=== PATIENT | male | born 1980 | race Two or more races ===

== ENCOUNTER → 2023-09-11 08:50 | Outpatient (REF) | payer BC, SELFPAY | LOC: HWRAD 08:50 | PROVIDERS: ATTENDING PHYSICIAN Internal Medicine Endocrinology, Diabetes & Metabolism; FAMILY PHYSICIAN Nurse Practitioner Family | DX: C73 Malignant neoplasm of thyroid gland (principal) | CPT/HCPCS: 76536 ==

== ENCOUNTER 2023-09-21 06:10 | Day surgery (SDC) | payer BC, SELFPAY ==
[2023-09-21] VITALS (13 sets, daily range): BP systolic 104–157; BP diastolic 75–128; BMI 25.5
[2023-09-21] MEDS: NORMOSOL-R 1000 IV (07:00)
[2023-09-21] MEDS: CELEBREX 200 MG PO (07:00)
[2023-09-21] MEDS: TYLENOL 1000 MG PO (07:00)
== END 2023-09-21 09:47 | disposition home or self-care (01) ==
LOC: SDS 06:10
PROVIDERS: ATTENDING PHYSICIAN Specialist
DX: S83.241A Other tear of medial meniscus, current injury, right knee, initial encounter (principal); X58.XXXA Exposure to other specified factors, initial encounter; M22.41 Chondromalacia patellae, right knee; M65.9 Synovitis and tenosynovitis, unspecified
CPT/HCPCS: 29881

== ENCOUNTER → 2024-02-25 08:56 | Outpatient (REF) | payer BC, SELFPAY | LOC: HWRAD 08:56 | PROVIDERS: ATTENDING PHYSICIAN Internal Medicine Endocrinology, Diabetes & Metabolism; FAMILY PHYSICIAN Nurse Practitioner Family | DX: C73 Malignant neoplasm of thyroid gland (principal) | CPT/HCPCS: 76536 ==

== ENCOUNTER → 2024-02-28 11:21 | Outpatient (REF) | payer BC, SELFPAY | LOC: HWRAD 11:21 | PROVIDERS: ATTENDING PHYSICIAN Nurse Practitioner Family | DX: R20.2 Paresthesia of skin (principal) | CPT/HCPCS: 72050 ==

== ENCOUNTER → 2024-02-29 09:44 | Outpatient (REF) | payer BC, SELFPAY | LOC: EMG 09:44 | PROVIDERS: ATTENDING PHYSICIAN Nurse Practitioner Family | DX: R20.2 Paresthesia of skin (principal) | CPT/HCPCS: 95886; 95911 ==

== ENCOUNTER → 2024-03-13 12:11 | Outpatient (REF) | payer BC, SELFPAY | LOC: HWRAD 12:11 | PROVIDERS: ATTENDING PHYSICIAN Surgery Plastic and Reconstructive Surgery; FAMILY PHYSICIAN Nurse Practitioner Family | DX: D16.4 Benign neoplasm of bones of skull and face (principal) | CPT/HCPCS: 70486 ==

== ENCOUNTER 2024-07-31 11:50 | Inpatient (IN) | payer BC, SELFPAY ==
[2024-07-29 18:55] VITALS: BP 144/102
[2024-07-29 19:27] LABS: COVID-19 Antigen Negative (Negative)
[2024-07-29 19:37] LABS: % Basophils 0.4 % (0-2); % Eosinophils 1.3 % (0-6); % Immature Granulocytes 0.2 % (0-0.5); % Lymphocytes 27.7 % (20.5-51.1); % Monocytes 11.9 % (1.7-9.3); % Neutrophils 58.5 % (42.2-75.2); Absolute Eosinophils 0.1 10^3/uL (0-0.7); Absolute Lymphocytes 1.3 10^3/uL (1.2-3.4); Absolute Monocytes 0.6 10^3/uL (0.1-0.6); Absolute Neutrophils 2.7 10^3/uL (1.4-6.5); Hemoglobin 15.2 g/dL (13.0-18.0); Mean Corp Hgb Conc. 33.8 g/dL (33.0-37.0); Mean Corpuscular Hgb 28.6 pg (27.0-31.0); Mean Corpuscular Volume 84.6 fL (80.0-94.0); Mean Platelet Volume 8.3 fL (7.4-10.4); Nucleated Red Blood Cells % 0 % (-); Platelet Count 247 10^3/uL (130-400); Red Blood Cell Count 5.32 10^6/uL (4.70-6.10); Red Cell Dist. Width 14.6 % (11.5-14.5); White Blood Cell Count 4.7 10^3/uL (4.8-10.8)
[2024-07-29 19:45] LABS: Albumin 4.4 g/dl (3.5-5.0); Alkaline Phosphatase 171 U/L (38-126); Blood Urea Nitrogen 10 mg/dl (9-20); Calcium 7.4 mg/dl (8.4-10.2); Carbon Dioxide 28 mmol/L (22-30); Chloride 99 mmol/L (98-107); Glucose 111 mg/dl (70-99); Potassium 4.4 mmol/L (3.5-5.1); Sodium 137 mmol/L (135-145); Total Bilirubin 5.9 mg/dl (0.2-1.3); eGFR > 60.00
[2024-07-29 20:08] LABS: ALT (SGPT) 3149 U/L (0-50)
[2024-07-29 20:38] LABS: AST (SGOT) 1779 U/L (17-59); Lipase 547 U/L (23-300)
--- NOTE | 2024-07-29 21:03 | ED.GENMED ---
History of Present Illness
<Ivan Santamaria PA-C - Last Filed: 08/04/24 08:09>
General
Chief Complaint: Abnormal Lab Value
Source: patient
Exam Limitations: none
Time Seen by Provider: 07/29/24 20:47
History of Present Illness
History of Present Illness:
44-year-old male with history of thyroid cancer requiring thyroidectomy now on Synthroid and calcitriol presents with 8 or 9 days worth of fatigue abdominal pain discolored stool and itchy skin. He was seen by the family doctor and outpatient labs
demonstrated elevated LFTs. He denies a cough. He denies sore throat or neck pain. He notes the pain in his abdomen is burning in nature mainly in the center occasionally radiates down to the lower abdomen bilaterally. The pain does not travel
to the back. No associated shortness of breath. His appetite is decreased. He notes recent travel to [place] about a month ago. This no other complaints at this time. He denies use of alcohol.
Phy Exam
<Ivan Santamaria PA-C - Last Filed: 08/04/24 08:09>
Physical Exam
Physical Exam:
General: Well-appearing male no acute respiratory distress
HEENT: Normocephalic atraumatic sclera icteric neck is supple posterior pharynx without erythema or exudate no adenopathy
Heart: Regular rate and rhythm
Lungs: Clear no wheeze
Abdomen soft tender to the epigastric and right upper quadrants as well as the lower quadrant bilaterally. Mild guarding positive Duncan sign
Extremities: No cyanosis
Skin warm no rash.
Course
<Ivan Santamaria PA-C - Last Filed: 08/04/24 08:09>
Orders/Labs/Results
Orders:
Orders
07/29/24 19:04
Acetaminophen Urgent
Comment: ADD ON
COVID-19 Antigen Urgent
Source: Nasal Swab
Complete Blood Count/With Diff Urgent
Comprehensive Metabolic Panel Urgent
Lipase Urgent
Comment: ADD ON
Monotest Urgent
Comment: ADD ON
Influenza A+B Rapid Molecular Urgent
KATHIE Source: Nasal Swab
Specimen Description:
07/29/24 20:10
Add On- LAB Urgent
Tests Added?: lipase
07/29/24 21:00
Add On- LAB Urgent
Tests Added?: monotest
07/29/24 21:01
Iohexol [Omnipaque] See Protocol PO NOW STA
US Abdomen Complete/Upper Urgent
Comment:
Reason For Exam: ruq pain, elevated LFT
07/29/24 21:02
CT Abd/pel W Iv And Oral Contr Urgent
Comment:
Reason For Exam: abodminal pain
07/29/24 21:15
PTT Urgent
Prothrombin Time Urgent
07/29/24 22:22
Hepatitis A Antibody, Total Urgent
Hepatitis A IgM Antibody Urgent
Hepatitis B Core Ab, IgM Urgent
Hepatitis B Core Ab, Total Urgent
Hepatitis B Surface Antibody Urgent
Hepatitis B Surface Antigen Urgent
Hepatitis C Antibody Urgent
07/30/24 01:20
0.9% Sodium Chloride 1000 ml [Nss] 1,000 ml IV BOLUS
07/30/24 01:21
Calcium Gluconate 1,000 mg IV NOW STA
07/30/24 02:16
Admit/Transfer Patient As Directed
Co-Sign Provider:
Level of Care: Observation services
Assign to:: Medical/Surgical
Physician / Group: [facility]
Diagnosis: Acute Hepatitis
07/30/24 02:17
PRN Pain Medication Management As Directed
May give lesser potent ordered pain med per pt: Yes
preference::
Protocol:: Medication orders for pain may be administered in a
manner that supports deferring to patient preference
when the pt is:
- Requesting an ordered lesser potent pain medication.
Least to most potent pain medications are defined
as: acetaminophen < NSAID < tramadol < opioids
(morphine, oxycodone, hydromorphone).
- Requesting a lesser dose of the same medication IF
ORDERED.
- Requesting a less intrusive route of administration
if both routes are prescribed by the provider (PO <
IV).
07/30/24 02:18
Code Status As Directed
Resuscitation Status: Full Code
07/30/24 03:20
Add On- LAB Urgent
Tests Added?: acetaminophen
07/30/24 03:21
0.9% Sodium Chloride 1000 ml [Nss] 1,000 ml IV 125 mls/hr
Ketorolac [Toradol] 15 mg IV Q6HPRN PRN
Ondansetron Injectable [Zofran] 4 mg IV Q6HPRN PRN
07/30/24 03:21
Consult Notification Routine
Specialty to Notify: Gastroenterology
Date consulting provider notified: 07/30/24
Time consulting provider notified: 08:23
Notified:: Provider
GASTROINTESTINAL CONSULT Routine
Consulting Provider: Apurva Costello
Was physician already notified: No
Reason for consult: Acute hepatitis
Activity As Directed
Activity Level: Ambulate
With Assistance
I/O [Intake/ Output] As Directed
Frequency: Per unit guidelines
Pneumatic Compression Sleeves As Directed
Type: Knee high
Vital Signs As Directed
Frequency: Per unit guidelines
Oxygen Therapy [O2 Therapy] [RESP] Routine
Titrate/Wean O2 to maintain O2 sat greater than (%): 94
DX Deep Vein Thrombosis Video Routine
07/30/24 05:00
Flush (0.9% Sodium Chloride) [Flush (Nss)] See Dose Instructions IV PER PROTOCOL
07/30/24 06:00
Levothyroxine [Synthroid] 137 mcg PO DAILY@0600
07/30/24 08:00
0.9% Sodium Chloride [Nss (Preservative Free)] 10 ml IV DAILY
Calcitriol [Rocaltrol] 0.5 mcg PO DAILY
Calcium 300mg(Ca. Carb. 750mg) [Tums Ex (Extra Strength) Chewable Tablet] 600 mg PO DAILY
Pantoprazole [Protonix IV] 40 mg IV DAILY
07/30/24 08:11
C-Reactive Protein Routine
Comment: ADD ON
CMV IgG Antibody [S] Routine
CMV IgM Antibody [S] Routine
Comment: ADD ON
Complete Blood Count/No Diff IN AM
Comprehensive Metabolic Panel Routine
Direct Bilirubin Routine
Vernon-Hatch Virus Ab Panel I [S] Routine
Comment: ADD ON
Erythrocyte Sed Rate Routine
Comment: ADD ON
Ferritin Routine
Comment: ADD ON
Iron Routine
Comment: ADD ON
Lipase Routine
Comment: ADD ON
TSH Reflex To Free T4 Routine
Total Iron Binding Routine
Comment: ADD ON
Legionella Urinary Antigen Urgent
KATHIE Source: Urine
Specimen Description:
07/30/24 09:12
MRI Abdomen [MR Abdomen W/o & W Contrast] Routine
Comment:
Reason For Exam: increased LFT's and lipase, do with MRCP
Recent pill cam endoscopy?: No
07/30/24 09:32
Add On- LAB Routine
Tests Added?: CMV IGG, IGM, vernon hatch panel
07/30/24 09:49
Add On- LAB Routine
Tests Added?: iron, TIBC, iron sat, ferritin
07/30/24 Lunch
Low Fat
At Your Request: Full Participation
Does patient need a safe tray?: No
07/30/24 11:31
Add On- LAB Routine
Tests Added?: lipase
07/30/24 12:02
Influenza A+B Rapid Molecular Urgent
KATHIE Source: Nasal Swab
Specimen Description:
07/30/24 14:06
Add On- LAB Routine
Tests Added?: sed rate , CRP
07/30/24 16:28
INFECTIOUS DISEASE CONSULT Routine
Consulting Provider: Tiffany Parsons
Was physician already notified: Yes
07/30/24 16:54
Add On- LAB Routine
Tests Added?: hepatitis E
07/30/24 17:59
Blood Culture Q30M
KATHIE Source: Blood/Venous
Specimen Description:
07/30/24 18:00
Enoxaparin Sodium [Lovenox] 40 mg SC QPM
07/30/24 20:19
CPK [Creatine Phosphokinase] Urgent
Salicylate Urgent
Blood Culture Q30M
KATHIE Source: Blood/Venous
Specimen Description:
07/31/24 06:37
AMA [Mitochondrial M2 Ab, IgG] [S] IN AM
SHANNAN, IgG Reflex to HEp-2 [S] IN AM
Ceruloplasmin [S] IN AM
Complete Blood Count/No Diff IN AM
Comprehensive Metabolic Panel Routine
Direct Bilirubin Routine
Prothrombin Time IN AM
Smooth Muscle Antibody, IgG [S] IN AM
Vitamin D, 25-Oh Routine
07/31/24 08:41
Babesia Smear [Blood Parasites] Routine
KATHIE Source: Blood/Venous
Specimen Description:
Comment: malaria and babesia smear
Abnormal Lab Results
07/29/24 07/30/24 07/30/24
19:04 08:11 20:19
WBC 4.7 L 10^3/uL
(4.8-10.8)
RDW 14.6 H % 14.6 H %
(11.5-14.5) (11.5-14.5)
Monocytes % 11.9 H %
(1.7-9.3)
BUN 8 L mg/dl
(9-20)
Glucose 111 H mg/dl
(70-99)
Calcium 7.4 L mg/dl 7.3 L mg/dl
(8.4-10.2) (8.4-10.2)
Ferritin 1950.0 H ng/ml
(17.9-464.0)
Total Bilirubin 5.9 H mg/dl 7.0 H mg/dl
(0.2-1.3) (0.2-1.3)
Direct Bilirubin 5.4 H mg/dl
(0.0-0.4)
AST 1779 H* U/L 1994 H* U/L
(17-59) (17-59)
ALT 3149 H* U/L 3137 H* U/L
(0-50) (0-50)
Alkaline Phosphatase 171 H U/L 183 H U/L
(38-126) (38-126)
Albumin
Lipase 547 H U/L 405 H U/L
(23-300) (23-300)
Vitamin D 25-Hydroxy
Salicylates < 1.0 L mg/dl
(2.0-20.0)
Acetaminophen < 10 L ug/ml
(10-30)
EBV Capsid Ag IgG Ab 88.1 H U/mL
(0.0-21.9)
EBV Nuclear Ag Ab Titer 277.0 H U/mL
(0.0-21.9)
07/31/24
06:37
WBC 4.3 L 10^3/uL
(4.8-10.8)
RDW 14.9 H %
(11.5-14.5)
Monocytes %
BUN 7 L mg/dl
(9-20)
Glucose 113 H mg/dl
(70-99)
Calcium 6.5 L* mg/dl
(8.4-10.2)
Ferritin
Total Bilirubin 6.8 H mg/dl
(0.2-1.3)
Direct Bilirubin 5.7 H mg/dl
(0.0-0.4)
AST 1872 H* U/L
(17-59)
ALT 3056 H* U/L
(0-50)
Alkaline Phosphatase 169 H U/L
(38-126)
Albumin 3.4 L g/dl
(3.5-5.0)
Lipase
Vitamin D 25-Hydroxy 23.5 L ng/mL
(30-80)
Salicylates
Acetaminophen
EBV Capsid Ag IgG Ab
EBV Nuclear Ag Ab Titer
07/31/24 06:37
07/31/24 06:37
Vital Signs
Initial and Last Documented VS:
Initial Vital Signs
Temp Pulse Resp BP Pulse Ox
98.5 F 79 16 144/102 99
07/29/24 18:55 07/29/24 18:55 07/29/24 18:55 07/29/24 18:55 07/29/24 18:55
Last Documented Vital Signs
Temp Pulse Resp BP Pulse Ox
97.5 F 74 16 140/86 99
08/01/24 12:40 08/01/24 12:40 08/01/24 12:40 08/01/24 12:40 08/01/24 12:40
<Noah Beebe, DO - Last Filed: 07/30/24 01:27>
Orders/Labs/Results
Orders:
Orders
07/29/24 19:04
Acetaminophen Urgent
Comment: ADD ON
COVID-19 Antigen Urgent
Source: Nasal Swab
Complete Blood Count/With Diff Urgent
Comprehensive Metabolic Panel Urgent
Lipase Urgent
Comment: ADD ON
Monotest Urgent
Comment: ADD ON
Influenza A+B Rapid Molecular Urgent
KATHIE Source: Nasal Swab
Specimen Description:
07/29/24 20:10
Add On- LAB Urgent
Tests Added?: lipase
07/29/24 21:00
Add On- LAB Urgent
Tests Added?: monotest
07/29/24 21:01
Iohexol [Omnipaque] See Protocol PO NOW STA
US Abdomen Complete/Upper Urgent
Comment:
Reason For Exam: ruq pain, elevated LFT
07/29/24 21:02
CT Abd/pel W Iv And Oral Contr Urgent
Comment:
Reason For Exam: abodminal pain
07/29/24 21:15
PTT Urgent
Prothrombin Time Urgent
07/29/24 22:22
Hepatitis A Antibody, Total Urgent
Hepatitis A IgM Antibody Urgent
Hepatitis B Core Ab, IgM Urgent
Hepatitis B Core Ab, Total Urgent
Hepatitis B Surface Antibody Urgent
Hepatitis B Surface Antigen Urgent
Hepatitis C Antibody Urgent
07/30/24 01:20
0.9% Sodium Chloride 1000 ml [Nss] 1,000 ml IV BOLUS
07/30/24 01:21
Calcium Gluconate 1,000 mg IV NOW STA
07/30/24 02:16
Admit/Transfer Patient As Directed
Co-Sign Provider:
Level of Care: Observation services
Assign to:: Medical/Surgical
Physician / Group: [facility]
Diagnosis: Acute Hepatitis
07/30/24 02:17
PRN Pain Medication Management As Directed
May give lesser potent ordered pain med per pt: Yes
preference::
Protocol:: Medication orders for pain may be administered in a
manner that supports deferring to patient preference
when the pt is:
- Requesting an ordered lesser potent pain medication.
Least to most potent pain medications are defined
as: acetaminophen < NSAID < tramadol < opioids
(morphine, oxycodone, hydromorphone).
- Requesting a lesser dose of the same medication IF
ORDERED.
- Requesting a less intrusive route of administration
if both routes are prescribed by the provider (PO <
IV).
07/30/24 02:18
Code Status As Directed
Resuscitation Status: Full Code
07/30/24 03:20
Add On- LAB Urgent
Tests Added?: acetaminophen
07/30/24 03:21
0.9% Sodium Chloride 1000 ml [Nss] 1,000 ml IV 125 mls/hr
Ketorolac [Toradol] 15 mg IV Q6HPRN PRN
Ondansetron Injectable [Zofran] 4 mg IV Q6HPRN PRN
07/30/24 03:21
Consult Notification Routine
Specialty to Notify: Gastroenterology
Date consulting provider notified: 07/30/24
Time consulting provider notified: 08:23
Notified:: Provider
GASTROINTESTINAL CONSULT Routine
Consulting Provider: Apurva Costello
Was physician already notified: No
Reason for consult: Acute hepatitis
Activity As Directed
Activity Level: Ambulate
With Assistance
I/O [Intake/ Output] As Directed
Frequency: Per unit guidelines
Pneumatic Compression Sleeves As Directed
Type: Knee high
Vital Signs As Directed
Frequency: Per unit guidelines
Oxygen Therapy [O2 Therapy] [RESP] Routine
Titrate/Wean O2 to maintain O2 sat greater than (%): 94
DX Deep Vein Thrombosis Video Routine
07/30/24 05:00
Flush (0.9% Sodium Chloride) [Flush (Nss)] See Dose Instructions IV PER PROTOCOL
07/30/24 06:00
Levothyroxine [Synthroid] 137 mcg PO DAILY@0600
07/30/24 08:00
0.9% Sodium Chloride [Nss (Preservative Free)] 10 ml IV DAILY
Calcitriol [Rocaltrol] 0.5 mcg PO DAILY
Calcium 300mg(Ca. Carb. 750mg) [Tums Ex (Extra Strength) Chewable Tablet] 600 mg PO DAILY
Pantoprazole [Protonix IV] 40 mg IV DAILY
07/30/24 08:11
C-Reactive Protein Routine
Comment: ADD ON
CMV IgG Antibody [S] Routine
CMV IgM Antibody [S] Routine
Comment: ADD ON
Complete Blood Count/No Diff IN AM
Comprehensive Metabolic Panel Routine
Direct Bilirubin Routine
Vernon-Hatch Virus Ab Panel I [S] Routine
Comment: ADD ON
Erythrocyte Sed Rate Routine
Comment: ADD ON
Ferritin Routine
Comment: ADD ON
Iron Routine
Comment: ADD ON
Lipase Routine
Comment: ADD ON
TSH Reflex To Free T4 Routine
Total Iron Binding Routine
Comment: ADD ON
Legionella Urinary Antigen Urgent
KATHIE Source: Urine
Specimen Description:
07/30/24 09:12
MRI Abdomen [MR Abdomen W/o & W Contrast] Routine
Comment:
Reason For Exam: increased LFT's and lipase, do with MRCP
Recent pill cam endoscopy?: No
07/30/24 09:32
Add On- LAB Routine
Tests Added?: CMV IGG, IGM, vernon hatch panel
07/30/24 09:49
Add On- LAB Routine
Tests Added?: iron, TIBC, iron sat, ferritin
07/30/24 Lunch
Low Fat
At Your Request: Full Participation
Does patient need a safe tray?: No
07/30/24 11:31
Add On- LAB Routine
Tests Added?: lipase
07/30/24 12:02
Influenza A+B Rapid Molecular Urgent
KATHIE Source: Nasal Swab
Specimen Description:
07/30/24 14:06
Add On- LAB Routine
Tests Added?: sed rate , CRP
07/30/24 16:28
INFECTIOUS DISEASE CONSULT Routine
Consulting Provider: Tiffany Parsons
Was physician already notified: Yes
07/30/24 16:54
Add On- LAB Routine
Tests Added?: hepatitis E
07/30/24 17:59
Blood Culture Q30M
KATHIE Source: Blood/Venous
Specimen Description:
07/30/24 18:00
Enoxaparin Sodium [Lovenox] 40 mg SC QPM
07/30/24 20:19
CPK [Creatine Phosphokinase] Urgent
Salicylate Urgent
Blood Culture Q30M
KATHIE Source: Blood/Venous
Specimen Description:
07/31/24 06:37
AMA [Mitochondrial M2 Ab, IgG] [S] IN AM
SHANNAN, IgG Reflex to HEp-2 [S] IN AM
Ceruloplasmin [S] IN AM
Complete Blood Count/No Diff IN AM
Comprehensive Metabolic Panel Routine
Direct Bilirubin Routine
Prothrombin Time IN AM
Smooth Muscle Antibody, IgG [S] IN AM
Vitamin D, 25-Oh Routine
07/31/24 08:41
Babesia Smear [Blood Parasites] Routine
KATHIE Source: Blood/Venous
Specimen Description:
Comment: malaria and babesia smear
Abnormal Lab Results
07/29/24 07/30/24 07/30/24
19:04 08:11 20:19
WBC 4.7 L 10^3/uL
(4.8-10.8)
RDW 14.6 H % 14.6 H %
(11.5-14.5) (11.5-14.5)
Monocytes % 11.9 H %
(1.7-9.3)
BUN 8 L mg/dl
(9-20)
Glucose 111 H mg/dl
(70-99)
Calcium 7.4 L mg/dl 7.3 L mg/dl
(8.4-10.2) (8.4-10.2)
Ferritin 1950.0 H ng/ml
(17.9-464.0)
Total Bilirubin 5.9 H mg/dl 7.0 H mg/dl
(0.2-1.3) (0.2-1.3)
Direct Bilirubin 5.4 H mg/dl
(0.0-0.4)
AST 1779 H* U/L 1994 H* U/L
(17-59) (17-59)
ALT 3149 H* U/L 3137 H* U/L
(0-50) (0-50)
Alkaline Phosphatase 171 H U/L 183 H U/L
(38-126) (38-126)
Albumin
Lipase 547 H U/L 405 H U/L
(23-300) (23-300)
Vitamin D 25-Hydroxy
Salicylates < 1.0 L mg/dl
(2.0-20.0)
Acetaminophen < 10 L ug/ml
(10-30)
EBV Capsid Ag IgG Ab 88.1 H U/mL
(0.0-21.9)
EBV Nuclear Ag Ab Titer 277.0 H U/mL
(0.0-21.9)
07/31/24
06:37
WBC 4.3 L 10^3/uL
(4.8-10.8)
RDW 14.9 H %
(11.5-14.5)
Monocytes %
BUN 7 L mg/dl
(9-20)
Glucose 113 H mg/dl
(70-99)
Calcium 6.5 L* mg/dl
(8.4-10.2)
Ferritin
Total Bilirubin 6.8 H mg/dl
(0.2-1.3)
Direct Bilirubin 5.7 H mg/dl
(0.0-0.4)
AST 1872 H* U/L
(17-59)
ALT 3056 H* U/L
(0-50)
Alkaline Phosphatase 169 H U/L
(38-126)
Albumin 3.4 L g/dl
(3.5-5.0)
Lipase
Vitamin D 25-Hydroxy 23.5 L ng/mL
(30-80)
Salicylates
Acetaminophen
EBV Capsid Ag IgG Ab
EBV Nuclear Ag Ab Titer
07/31/24 06:37
07/31/24 06:37
Vital Signs
Initial and Last Documented VS:
Initial Vital Signs
Temp Pulse Resp BP Pulse Ox
98.5 F 79 16 144/102 99
07/29/24 18:55 07/29/24 18:55 07/29/24 18:55 07/29/24 18:55 07/29/24 18:55
Last Documented Vital Signs
Temp Pulse Resp BP Pulse Ox
97.5 F 74 16 140/86 99
08/01/24 12:40 08/01/24 12:40 08/01/24 12:40 08/01/24 12:40 08/01/24 12:40
<Ivan Santamaria PA-C - Last Filed: 08/04/24 08:09>
MDM/Problems Addressed
Differential Diagnosis Includes:
Abdominal pain with elevated liver functions. Consider hepatitis versus gallstone versus common bile duct stone versus viral illness
Patient quite tender on exam. Ultrasound and CT ordered. Labs reviewed demonstrate significantly elevated LFTs
Coags pending
<Ivan Santamaria PA-C - Last Filed: 08/04/24 08:09>
*Critical Care Note
Total Time (30-74mins, 75-104mins- exclusive of procedures): Not Applicable
<Noah Beebe DO - Last Filed: 07/30/24 01:27>
Patient Management
Discussion with other providers: Hospitalist
ED Attending Note
<Ivan Santamaria PA-C - Last Filed: 08/04/24 08:09>
-
Portions of this chart may have been created with voice recognition software.� Occasional wrong word or��sound alike� substitutions may have occurred due to the inherent limitations of voice recognition software.
<DO Klaus Blair Last Filed: 07/30/24 01:27>
ED Attending Note
Patient seen and examined by attending physician: Yes
I performed the substantive portion of visit, reviewed & personally made and approve the management plan that is documented in note by myself or SCOTTIE.: Yes
ED Attending Note:
This a 44-year-old male with history of papillary thyroid cancer with thyroidectomy, hypertension, hyperlipidemia who presents with recent fevers and found to have elevated liver enzymes. The patient my evaluation reports some fatigue and weakness
and then for the last several days had fevers. He has been using Tylenol 3 times a day but denies overuse. Patient admits he was also in [place] through June and at that time also had fevers. He thought he just had a local virus. Patient denies
diarrhea. Does report discomfort in his upper abdomen and towards his left side. Also reports that he feels twitchy right now wonders if this calcium is low. Exam: Awake and alert, no respiratory distress, abdomen soft. Agree with PA exam.
Assessment and plan: Question etiology. Question viral related and hepatitis panel pending. Also check Legionella antigen. Imaging does not reveal any obstructive process. Replace calcium, IV fluids and admit. GI consultation likely could be
beneficial
Discharge Plan
Departure
Patient Disposition: Admit
Date of Disposition: 07/30/24
Time of Disposition: 01:22
Admit to: Med/Surg
Presentation/result/management discussed w/ accepting MD/DO: Hospitalist
Discharge Problem:
Acute hepatitis, Hypocalcemia
Interventions
Interventions:
*Risk Screen - Suicide Last Done: 07/29/24 21:32
*General Assessment Last Done: 07/29/24 18:55
*Neglect/Abuse Screening Last Done: 07/29/24 21:32
ED- Fall Risk Assessment Last Done: 07/30/24 19:05
*ED COVID-19 Vaccine History Last Done: 07/29/24 18:55
*Nursing Disposition Last Done: 07/30/24 19:05
Discharge Date and Time
Discharge Date/Time: 07/30/24 19:06
[2024-07-29 21:12] LABS: Monotest Negative (Negative)
[2024-07-29] MEDS: OMNIPAQUE 50 ML PO (21:20)
[2024-07-29 21:30] VITALS: BP 141/100
[2024-07-29 21:30] LABS: INR 1.02; PT 13.7 Sec (11.4-14.6)
[2024-07-29 21:31] LABS: APTT 31.6 Sec (23.4-35.0)
[2024-07-29 23:30] VITALS: BP 146/100
[2024-07-30] VITALS (8 sets, daily range): BP systolic 103–148; BP diastolic 64–103; BMI 25.5; BMI 24.5
[2024-07-30] MEDS: CALCIUM GLUCONATE 1000 MG IV (01:26)
[2024-07-30] MEDS: NSS 1000 IV ×4 (01:26→21:37)
--- NOTE | 2024-07-30 02:35 | HPS.HSE ---
Family Physician
-
Family Physician: CINDY Leblacn
Chief Complaint
-
Fevers / Chills
History of Present Illness
Patient is a 44y M with PMH significant for thyroid cancer s/p thyroidectomy and XRT who presents to ED complaining of fevers, chills, myalgias and malaise. Patient states that his symptoms started about 8-9 days ago. He reports shaking chills,
fevers, muscle aches and fatigue. He has had poor appetite / decreased PO intake. No N/V. No diarrhea. Stool has been pale colored and urine has been bright yellow. Patient notes that he has been taking Tylenol for symptom control - two tabs 3
times daily at the most. Patient was seen by his PCP recently and had outpatient labs done. He was called today and advised of abnormal LFTs and told to present to the ED for evaluation.
Patient denies any history of liver disease. He denies any known sick contacts.
Patient traveled to [facility] in June of this year. He returned home on 06/21/24.
While in [place] he developed similar fevers / chills and myalgias. He states that multiple contacts were ill with similar symptoms at that time.
Patient denies any high-risk sexual activity / encounters.
He was seen by a physician in [facility] and received an injection of paracetamol with improvement in his symptoms. He then felt well until 8-9 days ago when his current symptoms developed.
Medical History
Past Medical History
Past Medical History: Reports Other
Additional Past Medical History:
Thyroid Cancer s/p Surgery and XRT
Hypothyroidism
Hypoparathyroidism
Past Surgical History: Reports Other
Additional Past Surgical History:
Thyroidectomy
R ACL Repair
Social History
Tobacco: Non-smoker
Alcohol: Occasional
Drug: None
Family History
Family History: Other (Strong history of premature CAD on his mother's side. Mother at 58yo. Maternal Uncles in 30s /40s. Father: DM)
Allergies / Home Medications
Allergies reflects when Allergies were last updated in [facility].
Home Medications with original date entered in [facility]
Allergy/Medication List:
Allergies
Allergy/AdvReac Type Severity Reaction Status Date / Time
No Known Allergies Allergy Verified 09/21/23 06:53
Home Medications
atorvastatin 10 mg tablet 10 mg PO HS 01/30/23
calcitriol 1 cap PO DAILY 09/14/23
calcium carbonate (Calcium 600) 600 mg PO DAILY 09/14/23
levothyroxine 137 mcg tablet (Synthroid) 137 mcg PO DAILY 09/14/23
Review of Systems
-
History Source: Patient
A 12 point ROS was completed and negative except as noted: Yes
Constitutional: Reports Fever, Fatigue and Chills
EENT: Denies Sore Throat
Respiratory: Denies Cough or Trouble Breathing
Cardiac: Denies Chest Pain or Palpitations
Abdomen/GI: Reports Abdominal Pain, Nausea, Anorexia and Other (Pale stools.); Denies Vomiting, Diarrhea, Bloody Stools or Black Stools
: Reports Other (Bright yellow urine.); Denies Dysuria or Frequency
Musculoskeletal: Reports Muscle Pain; Denies Edema
Neurological: Reports Headache; Denies Dizzy
Psych: Denies Depression or Anxiety
Physical Exam
Vital Signs
Vital Signs
Temp Pulse Resp BP Pulse Ox
98.5 F 65 16 136/101 99
07/29/24 18:55 07/30/24 01:23 07/30/24 01:23 07/30/24 01:23 07/30/24 01:23
Physical Exam
General: Other (44y M in no acute distress.)
HEENT: Other (Dry MM. Neck supple. No noted scleral icterus, etc.)
Respiratory: Clear; No Wheezes, Rales or Rhonchi
Cardiac: S1/S2 and Regular Rhythm; No Murmur
GI: Other (Soft, diffusely tender without rebound / guarding. pos BS.)
Musculoskeletal: No Clubbing, No Cyanosis and No Edema
Neuro: AO x 3
Laboratory Results
-
07/29/24 19:04
07/29/24 19:04
Laboratory Results
PT 13.7 Sec (11.4-14.6) 07/29/24 21:15
INR 1.02 07/29/24 21:15
APTT 31.6 Sec (23.4-35.0) 07/29/24 21:15
Total Bilirubin 5.9 mg/dl (0.2-1.3) H 07/29/24 19:04
AST 1779 U/L (17-59) H* 07/29/24 19:04
ALT 3149 U/L (0-50) H* 07/29/24 19:
Alkaline Phosphatase 171 U/L (38-126) H 07/29/24 19:04
Lipase 547 U/L (23-300) H 07/29/24 19:04
Impression/Plan
-
A/P: Patient is a 44y M with PMH significant for thyroid cancer s/p thyroidectomy who presents to ED complaining of fevers / chills and abnormal LFTs.
Acute Hepatitis
- Observe overnight for further evaluation and treatment.
- Likely viral hepatitis - serologies pending.
- Supportive care with IVFs, antipyretics (NSAIDs), etc.
- GI evaluation for additional recommendations.
- Imaging (CT and US) done in the ED this evening are unremarkable.
- Hold statin. Avoid Tylenol for now.
- Check acetaminophen level - though doubt recent TID usage would explain current symptoms / numbers.
Hypocalcemia
Chronic Hypoparathyroidism
- Patient with hypoparathyroidism and issues with hypocalcemia following thyroid surgery.
- Continue calcitriol.
- Calcium supplemented in the ED.
- Follow labs for changes and provide additional Ca as needed.
History of Thyroid Cancer
Hypothyroidism
- Post-surgical hypothyroidism
- Continue current T4 replacement.
DVT Prophylaxis: Lovenox
Code Status: Full
[2024-07-30] MEDS: SYNTHROID 137 MCG PO (05:27)
[2024-07-30 05:33] LABS: Acetaminophen < 10 ug/ml (10-30)
--- NOTE | 2024-07-30 08:00 | W.PN.HOSP.TC ---
Today's Communication/Plan
-
Avoid Tylenol
Hold statin
Check hepatitis panel, CMV, EBV
Assessment / Plan
Assessment / Plan
44-year-old male with PMH of papillary thyroid cancer s/p thyroidectomy and chemotherapy who presented to ED on 07/30/2024 with 8 to 9 days history of fever, chills, myalgia and malaise. He also reports poor oral intake with decreased appetite.
Denies nausea vomiting or diarrhea. He recently saw his PCP and was sent to the hospital because of elevated LFTs. Denies history of liver disease, or alcohol use disorder, high risk sexual contacts. He had a recent travel history to [place] in
June 2024 when he developed similar fever, chills and myalgia. At that time, he received paracetamol injection and felt well until recent symptoms started about 9 days ago.
Assessment/plan:
#Acute hepatitis
-Suspect viral etiology vs passed CBD stone. Autoimmune hepatitis less likely given no history of other autoimmune diseases or evidence of extrahepatic disease.
-MRI of abdomen suggesting mild gallbladder inflammation suggesting acalculous cholecystitis.
-AST 1779, ALT 3149., T. bili 5.9 p1721, lipase 547.
-Mononucleosis screen negative.
-Hepatitis panel, EBV and CMV pending.
-CT and ultrasound done in the ED unremarkable.
-Blood acetaminophen level low.
-GI following.
-Hold statin and Tylenol.
-Follow BMP
#History of papillary thyroid cancer
-S/p thyroidectomy with neck dissection 2022 with iatrogenic hypothyroidism.
-Continue Synthroid.
#Chronic hypoparathyroidism
-S/p thyroidectomy with resultant hypocalcemia, calcium 7.3.
-On calcitriol [employer], continue.
-Calcium supplementation as needed.
-Check TSH with reflex to T4.
-Continue levothyroxine.
-Follow BMP.
#Hyperlipidemia
-Hold statin with acute liver failure.
DVT PPx: Lovenox
CODE STATUS full code
Data
MRI 07/30/2024:
Subtle findings as described, suggesting mild gallbladder inflammation. In the absence of cholelithiasis on recent ultrasound examination, consider the possibility of acalculous cholecystitis. No bile duct dilatation. No definitive evidence to
suggest pancreatitis.
CT abdomen/pelvis 07/29/2024:
1. No CT abnormalities identified to explain the patient's symptoms.
2. No evidence of intestinal obstruction, bowel inflammatory process, nephrolithiasis, hydronephrosis, cholecystitis, or abscess formation.
Abdominal ultrasound 07/29/2024:
No sonographic evidence for cholelithiasis or bile duct dilatation. Limited by bowel gas artifact.
Anticipated Discharge: 24 - 48 hours
Subjective/Interval History
-
Date of Service: July 30, 2024
Saw and evaluated patient today. Reports that his pain improved. He endorses midepigastric abdominal pain rated 2/10 that radiates sometimes to the back, intermittently. Denies nausea or vomiting. Denies chest pain or shortness of breath. No
fever or chills. Denies headaches or urinary symptoms. He also endorses generalized itchiness that has improved, dark urine and pale stool for the past 4 to 5 days. He denies any rashes, or joint pains.
Objective Data
-
Labs:
Laboratory Results
07/29/24 07/29/24 07/30/24
19:04 21:15 07:29
WBC
Hgb
Hct
Plt Count
PT 13.7
INR 1.02
APTT 31.6
Sodium Pending
Potassium Pending
Chloride Pending
Carbon Dioxide Pending
BUN Pending
Creatinine Pending
Glucose Pending
Calcium Pending
Total Bilirubin Pending
AST 1779 H* Pending
ALT 3149 H* Pending
Alkaline Phosphatase Pending
07/30/24
07:30
WBC Pending
Hgb Pending
Hct Pending
Plt Count Pending
PT
INR
APTT
Sodium
Potassium
Chloride
Carbon Dioxide
BUN
Creatinine
Glucose
Calcium
Total Bilirubin
AST
ALT
Alkaline Phosphatase
Vital Signs:
Vital Signs
Temp Pulse Resp BP Pulse Ox
98.5 F 65 16 136/101 99
07/29/24 18:55 07/30/24 01:23 07/30/24 01:23 07/30/24 01:23 07/30/24 01:23
Review of Systems
-
History Source: Patient
All other systems: Not reviewed unless documented
Constitutional: Reports No Symptoms; Denies Fever, Fatigue, Night Sweats or Chills
Respiratory: Reports No Symptoms; Denies Trouble Breathing or Wheezing
Cardiac: Reports No Symptoms; Denies Chest Pain or Palpitations
Abdomen/GI: Reports Abdominal Pain; Denies Nausea or Vomiting
Genitourinary: Reports No Symptoms
Musculoskeletal: Reports No Symptoms; Denies Joint Pain
Skin: Reports Itching (Improved); Denies Rash
Neuro: Reports No Symptoms
Physical Exam
-
General: Well Developed and No Apparent Distress
HEENT: Normocephalic, Atraumatic, Moist Mucous Membranes and Other (Mild scleral icterus)
Respiratory: Clear to Auscultation; Negative Wheezes
Cardiac: Regular Rhythm and S1/S2; Negative Murmur, Rub or Gallop
GI: Soft, Nontender, Nondistended and Normal Bowel Sounds; Negative Organomegaly
Rectal: Deferred by Provider
Musculoskeletal: No Clubbing, No Cyanosis and No Edema
Skin: Warm; Negative Rash
Neuro: Awake, AO x 3 and Nonfocal/Grossly Intact
Psych: Calm
Data Reviewed
-
CT Scan: Image personally visualized and interpreted, Report Reviewed by me and Discussed with Physician
MRI: Image personally visualized and interpreted, Report Reviewed by me and Discussed with Physician
Labs: Labs Reviewed by me and Discussed with Physician
[2024-07-30 08:26] LABS: Hematocrit 40.3 % (39.0-52.0); Hemoglobin 13.9 g/dL (13.0-18.0); Mean Corp Hgb Conc. 34.5 g/dL (33.0-37.0); Mean Corpuscular Hgb 28.8 pg (27.0-31.0); Mean Corpuscular Volume 83.4 fL (80.0-94.0); Mean Platelet Volume 8.7 fL (7.4-10.4); Platelet Count 226 10^3/uL (130-400); Red Blood Cell Count 4.83 10^6/uL (4.70-6.10); Red Cell Dist. Width 14.6 % (11.5-14.5)
--- NOTE | 2024-07-30 08:45 | CON.GI ---
Addendum entered and electronically signed by Lisandra Diane MD 07/30/24 20:03:
I saw and examined the patient.
The HARVESTER OPERATOR's note was reviewed and I agree with the note.
Comment: This is a 44-year-old male with past medical history of papillary thyroid cancer status post thyroidectomy and radiation with Dr. Hakeem Burk, hyperlipidemia, hypothyroidism who had recent visit to [facility] mid May to June and while he was
there he contracted symptoms of nausea vomiting and diarrhea with profound fatigue and low-grade fever and received paracetamol and also received an injection he is unsure what the injection was and then was given antibiotics which he took only for
about 3 to 4 days. He says that after that he felt well but about 5 days ago he started having similar symptoms again with fatigue. He says [place] at the time he was ill. He had labs with his PCP on
07/28 with significantly elevated LFTs and was told to come into the ER. He has significant transaminitis with elevated bilirubin and mildly elevated alkaline phosphatase and mild elevated lipase. Ultrasound with no gallstones and CT also was
unremarkable and MRI shows mild possible gallbladder inflammation no stones or ductal dilatation were noted questionable acalculous cholecystitis. His hepatitis serologies are currently pending, Tylenol level was less than 10, flu was negative and
COVID was negative. He denies any recent change in medications and also denies any herbal [id number] supplements. No history of alcohol use, his statin is on on hold now.
Assessment and plan symptoms of viral syndrome with profound fatigue decreased appetite and also had similar symptoms while he was in [facility] end of May with gastroenteritis symptoms at that time and was treated with paracetamol and antibiotics
and now with recurrent symptoms with significantly elevated transaminitis. His hepatitis serologies are currently pending will need to rule out possible viral etiology. Will also need to rule out possible autoimmune hepatitis and other underlying
chronic liver diseases will get other labs also. Will also get EBV serologies although his Monospot was negative on admission. Would also consider infectious disease consult. I think is less likely DILI since he took the antibiotic over 4 weeks
ago but cannot completely rule out and would have a low threshold for liver biopsy if they are continuing to rise or transfer to a tertiary center. Continue to trend LFTs and INR. Currently has no signs of encephalopathy
Original Note:
Consultation
-
Date/Time Consultation Requested: 07/30/24319
Date/Time Consultation Performed: 07/30/24 8333
Requesting Provider: Henry Paz DO
Performing Provider: CINDY Francois, Lisandra Diane MD
Reason for Consultation: increased LFT's
Medical History
Chief Complaint / HPI
Chief Complaint: fatigue, decreased appetite, jaundice
History of Present Illness:
Pt is a 44yo with hx hypercholesterolemia, hypothyroidism on thyroid replacement , papillary thyroid CA with prior thyroidectomy/radiation 2022 with some persistent issues with calcium levels, ACL repair with onset of fatigue, decreased appetite,
bloating, belching abdominal pain, change in skin color and itching. In review with patient he was in [place] in May and again 3 weeks ago. With recent [place] trip noted with onset of symptoms with decreased appetite, fatigue with other family
not feeling well. He did seek care at local clinic and was given Tylenol. He felt slightly improved on return but then continued with symptoms for last 8-9 days. He was seen by PCP 07/28 with abnormal labs (bili 3.1, AST 1056, ALT 1826, alk phos
188, calcium 7.3) and directed to ER. On admission noted with bili 5.9, AST 1779, ALT 3149, alk phos 171, lipase 547, Tylenol level <10, INR 1.02 with hepatitis pending and mono neg, flu neg, covid neg, legionella pending. No prior hx hepatitis,
liver issues in past. No recent mushroom ingestion or other supplement use. On medication change was decreased calcitriol dose and admits to Tylenol use with 3 dose daily last few days and occasional Motrin use.
Pt otherwise admits to mild upper abdominal pain and pain into left side around ribs. He has had a 4 lbs wt loss with decreased appetite, dark urine, rodríguez stools, but denies dysphagia, GERD, nausea, vomiting, diarrhea, constipation or rectal
bleeding. Denies ETOH Use.
07/29/24 US Abdomen Complete/Upper
No sonographic evidence for cholelithiasis or bile duct dilatation. Limited by bowel gas artifact.
07/30/24 CT A/p with IV and oral contrast
1. No CT abnormalities identified to explain the patient's symptoms.
2. No evidence of intestinal obstruction, bowel inflammatory process, nephrolithiasis, hydronephrosis, cholecystitis, or abscess formation.
other outpatient labs 07/28/24 lipase 65, with neg urine cx, normal CBC, CRP 0.74 with normal LFT's 09/2023 but 02/2023 mild elevation bili 0.8, AST 107, ALT 74, alk phos 70 and lipase 65.
Past Medical History
Past Medical History: Cancer (papillary thyroid CA with prior total thyroidectomy/radiation), Hypercholesterolemia and Hypothyroidism
Past Surgical History: Orthopedic (ACL reconstruction, right knee scope, hypocalcemia with parathyroid removal)
Social History
Tobacco: Non-Smoker
Alcohol: None
Drug: None
Personal:
Living: With Family
Employment: Employed
Family History
Family History: Other (no family hx liver problems )
Allergies / Home Medications
Allergy/AdvReac Type Severity Reaction Status Date / Time
No Known Allergies Allergy Verified 09/21/23 06:53
�Medication �Instructions �Recorded
atorvastatin 10 mg tablet 10 mg PO HS 01/30/23
calcitriol 1 cap PO DAILY 09/14/23
calcium carbonate (Calcium 600) 600 mg PO DAILY 09/14/23
levothyroxine 137 mcg tablet 137 mcg PO DAILY 09/14/23
(Synthroid)
Review of Systems
-
History Source: Patient and Family
Constitutional: Reports Weight Loss ( 4 lbs ), Fatigue and Chills
EENT: Reports No Symptoms
Respiratory: Reports No Symptoms
Abdomen/GI: Reports Abdominal Pain (mild with epigastric and left upper quad pain) and Other (bloating, decreased appetite, rodríguez stools)
: Reports Other (recent tingling with neg OP urine cx )
Musculoskeletal: Reports Muscle Pain
Skin: Reports No Symptoms
Neurological: Reports Weakness
Endocrine: Reports No Symptoms
Hematologic/Lymphatic: Reports No Symptoms
Vital Signs
Temp Pulse Resp BP Pulse Ox
98.5 F 65 16 136/101 99
07/29/24 18:55 07/30/24 01:23 07/30/24 01:23 07/30/24 01:23 07/30/24 01:23
Physical Exam
Exam
General: Well Developed, Well Nourished and No Apparent Distress
HEENT: Normocephalic and Other (sclera icteric )
Respiratory: Clear
Cardiac: Regular Rhythm
GI: Soft, Non Distended and Tender (mild epigastric and LUQ)
Musculoskeletal: No Clubbing and No Cyanosis
Skin: Warm and Dry
Neuro: Awake and Alert
Psych: Calm
Results
WBC 5.0 10^3/uL (4.8-10.8) 07/30/24 08:11
Hgb 13.9 g/dL (13.0-18.0) 07/30/24 08:11
Hct 40.3 % (39.0-52.0) 07/30/24 08:11
MCV 83.4 fL (80.0-94.0) 07/30/24 08:11
Plt Count 226 10^3/uL (130-400) 07/30/24 08:11
Absolute Neuts (auto) 2.7 10^3/uL (1.4-6.5) 07/29/24 19:04
PT 13.7 Sec (11.4-14.6) 07/29/24 21:15
INR 1.02 07/29/24 21:15
APTT 31.6 Sec (23.4-35.0) 07/29/24 21:15
Sodium 137 mmol/L (135-145) 07/29/24 19:04
Potassium 4.4 mmol/L (3.5-5.1) 07/29/24 19:04
Chloride 99 mmol/L (98-107) 07/29/24 19:04
Carbon Dioxide 28 mmol/L (22-30) 07/29/24 19:04
BUN 10 mg/dl (9-20) 07/29/24 19:04
Creatinine 1.0 mg/dL (0.7-1.3) 07/29/24 19:04
Calcium 7.4 mg/dl (8.4-10.2) L 07/29/24 19:04
Total Bilirubin 5.9 mg/dl (0.2-1.3) H 07/29/24 19:04
AST 1779 U/L (17-59) H* 07/29/24 19:04
ALT 3149 U/L (0-50) H* 07/29/24 19:04
Alkaline Phosphatase 171 U/L (38-126) H 07/29/24 19:04
Lipase 547 U/L (23-300) H 07/29/24 19:04
Diagnostic Image Results:
07/29/24 US Abdomen Complete/Upper
No sonographic evidence for cholelithiasis or bile duct dilatation. Limited by bowel gas artifact.
07/30/24 CT A/p with IV and oral contrast
1. No CT abnormalities identified to explain the patient's symptoms.
2. No evidence of intestinal obstruction, bowel inflammatory process, nephrolithiasis, hydronephrosis, cholecystitis, or abscess formation.
Prior GI Procedures:
EGD: none
Colonoscopy: none
Assessment / Plan
-
Pt is a 44yo with hx hypercholesterolemia, hypothyroidism on thyroid replacement , papillary thyroid CA with prior thyroidectomy/radiation 2022 with some persistent issues with calcium levels, ACL repair with onset of fatigue, decreased appetite,
bloating, belching abdominal pain, change in skin color and itching. In review with patient he was in [place] in May and again 3 weeks ago. With recent [place] trip noted with onset of symptoms with decreased appetite, fatigue with other family
not feeling well. He did seek care at local clinic and was given Tylenol. He felt slightly improved on return but then continued with symptoms of fatigue, decreased appetite, jaundice, dark urine, rodríguez stools and upper abdominal pain for last 8-9
days. He was seen by PCP 07/28 with abnormal labs (bili 3.1, AST 1056, ALT 1826, alk phos 188, calcium 7.3) and directed to ER. On admission noted with bili 5.9, AST 1779, ALT 3149, alk phos 171, lipase 547, Tylenol level <10, INR 1.02 with
hepatitis pending and mono neg, flu neg, covid neg, legionella pending. No prior hx hepatitis, liver issues in past. No recent mushroom ingestion or other supplement use. On medication change was decreased calcitriol dose and admits to Tylenol
use with 3 dose daily last few days and occasional Motrin use.
07/29/24 US Abdomen Complete/Upper
No sonographic evidence for cholelithiasis or bile duct dilatation. Limited by bowel gas artifact.
07/30/24 CT A/p with IV and oral contrast
1. No CT abnormalities identified to explain the patient's symptoms.
2. No evidence of intestinal obstruction, bowel inflammatory process, nephrolithiasis, hydronephrosis, cholecystitis, or abscess formation.
other outpatient labs 07/28/24 lipase 65, with neg urine cx, normal CBC, CRP 0.74 with normal LFT's 09/2023 but 02/2023 mild elevation bili 0.8, AST 107, ALT 74, alk phos 70 and lipase 65.
-increased LFT's and lipase
-epigastric/ LUQ pain
-fatigue, decreased appetite/bloating
-recent travel to [place] x 2
-recent Tylenol use after onset with level <10 on admission
other med problems:
-hypercholesterolemia
-hypothyroidism
-hx papillary thyroid CA with prior thyroidectomy/radiation 2022 with some persistent calcium level issues follow with endocrine
-ACL repair
PLAN:
etiology of symptoms related to viral etiology, CBD stone with some concurrent lipase elevation, drug induced but no change in medication or suspicious med, no recent supplement use, Tylenol level is <10, autoimmune process, vs other -- pt denies
ETOH or drug use.
Flu, mono, covid neg , hepatitis panel pending, add EBV, CMV
US and CT as noted will add MRI/ MRCP to exclude CBD stone not seen on CT or US, pancreatitis with elevated lipase and for any other structural abnormality
will add SHANNAN, AMA, iron studies
cont to trend labs INR
TSH pending with hx thyroid CA
if work up neg consider further liver serology, hep E testing with recent travel
hold Atorvastatin
family updated at bedside
-
-
Thank you for consultation and allowing me to participate in the patient's care. Please call the removable prosthodontist GI physician during the after hours with any questions or concerns.
[2024-07-30] MEDS: TUMS EX (EXTRA STRENGTH) CHEWABLE TABLET 600 MG PO (08:53)
[2024-07-30] MEDS: NSS (PRESERVATIVE FREE) 10 ML IV (08:54)
[2024-07-30] MEDS: PROTONIX IV 40 MG IV (08:54)
[2024-07-30 09:20] LABS: Albumin 3.8 g/dl (3.5-5.0); Alkaline Phosphatase 183 U/L (38-126); Blood Urea Nitrogen 8 mg/dl (9-20); Calcium 7.3 mg/dl (8.4-10.2); Carbon Dioxide 24 mmol/L (22-30); Chloride 101 mmol/L (98-107); Direct Bilirubin 5.4 mg/dl (0.0-0.4); Estimated Creatinine Clearance 107 ml/min; Glucose 90 mg/dl (70-99); Potassium 3.9 mmol/L (3.5-5.1); Sodium 135 mmol/L (135-145); eGFR > 60.00
[2024-07-30] MEDS: ROCALTROL 0.5 MCG PO (09:23)
[2024-07-30 09:50] LABS: TSH Reflex To Free T4 0.47 uIU/ml (0.47-4.68)
[2024-07-30 09:58] LABS: ALT (SGPT) 3137 U/L (0-50); AST (SGOT) 1994 U/L (17-59)
[2024-07-30 10:31] LABS: Iron 155 ug/dl (49-181)
[2024-07-30 10:40] LABS: Percent Saturation 49 % (20-50); Total Iron Binding Capacity 315 ug/dl (261-462)
--- NOTE | 2024-07-30 13:08 | PTCARENOTE ---
1300 patient taken to MRI.
--- NOTE | 2024-07-30 14:09 | W.PN.UPDATE ---
Update Note
Progress Note Update
I saw and evaluated the patient. I reviewed the resident�s note and agree with findings and plan as documented in the resident�s note except for changes in documentation
44-year-old male presented with fevers and myalgia. Patient stated that he went to [facility] end of May through June. He had fevers and chills at that time and he went to the ER there was given paracetamol and an injection which she does not
know what it was. He stated that he was feeling well up until 5 days ago when he started having some fevers and chills he did not check his temperature. Also intermittent abdominal pains. Light-colored stools and dark urine. Lost about 4 pounds
in the past few days. No family history of liver disease. No rashes or joint pains. He does have itching-generalized
Icterus
CVS S1 S2 normal
Chest CTA
No abd tenderness
No edema
# Abnormal LFTs
Acute hepatitis
Viral etiology versus other like mechanical reasons like a stone, autoimmune etc
CT of the abdomen pelvis With IV and oral contrast and USS -no acute changes
Hand screen neg
Check hepatitis panel, EBV ,CMV
Check Sed rate and CRP
Tylenol level less than 10
No family H/O Liver disease .
No H/O Autoimmune illness.
Elevated Ferritin noted.
GI evaluation
MRI of the abdomen
Hold statin
If no answers may need liver biopsy
# Mildly elevated lipase-follow
# Chronic hypoparathyroidism due to Thyroidectomy
Continue calcitriol
# History of papillary thyroid cancer status post total thyroidectomy and neck dissection by Dr. Hakeem Burk 02/06/2023
Iatrogenic hypothyroidism-continue Synthroid 137 mcg.
# Hyperlipidemia-hold statin
# Migraines
# DVT prophylaxis-Lovenox
# Full code
D/W at bed side
[2024-07-30 14:34] LABS: Erythrocyte Sed Rate 10 mm/hour (0-20)
[2024-07-30 14:38] LABS: Lipase 405 U/L (23-300)
[2024-07-30] MEDS: LOVENOX 40 MG SC (18:30)
--- NOTE | 2024-07-30 19:41 | PTCARENOTE ---
Pt escorted to 1 acute, nurse provided report
[2024-07-30 20:43] LABS: Creatine Phosphokinase 111 U/L (55-170); Salicylate < 1.0 mg/dl (2.0-20.0)
[2024-07-30] MEDS: TORADOL 15 MG IV (21:36)
[2024-07-31] MEDS: NSS 1000 IV ×2 (04:46→13:42)
--- NOTE | 2024-07-31 04:50 | PTCARENOTE ---
Patient received from ED via stretcher and ambulated to room. He was oriented to room and surroundings. IVF as ordered. Toradol x1 dose for c/o headache. See nursing assessment for physical findings.
[2024-07-31] MEDS: SYNTHROID 137 MCG PO (06:31)
--- NOTE | 2024-07-31 07:09 | W.PN.HOSP.TC ---
Addendum entered and electronically signed by Rocio Patel MD 07/31/24 15:26:
I saw and evaluated the patient. I reviewed the resident�s note and agree with findings and plan as documented in the resident�s note except for changes
Icterus
CVS S1 S2 normal
Chest CTA
No abd tenderness
No edema
# Abnormal LFTs
Acute hepatitis
Viral etiology versus other like mechanical reasons like a stone, autoimmune etc
CT of the abdomen pelvis With IV and oral contrast and USS -no acute changes
MRI of the abdomen no acute changes
[place] screen neg
Check hepatitis panel, EBV ,CMV-Pending ( Spoke to lab -hepatitis serologies will be back by 8 PM tonight)
Normal CRP
Tylenol level less than 10
No family H/O Liver disease .
No H/O Autoimmune illness.
Elevated Ferritin noted.
Coags OK
Malaria smear ordered
Hold statin
If no answers may need liver biopsy eventually
NAC started - So will DC IVF
# Chronic hypoparathyroidism due to Thyroidectomy
Continue calcitriol
Replace low Vit D
Discussed with nursing
Discussed with at bedside
Discussed with GI
Spoke to lab
Original Note:
Today's Communication/Plan
-
Follow-up on hepatitis profile and other labs
Might need liver biopsy if unclear
Assessment / Plan
Assessment / Plan
44-year-old male with PMH of papillary thyroid cancer s/p thyroidectomy and chemotherapy who presented to ED on 07/30/2024 with 8 to 9 days history of fever, chills, myalgia and malaise. He also reports poor oral intake with decreased appetite.
He recently saw his PCP and was sent to the hospital because of elevated LFTs. Denies history of liver disease, or alcohol use disorder, high risk sexual contacts. He had a recent travel history to [place] in June 2024 when he developed similar
fever, chills and myalgia.
Assessment/plan:
# Abnormal liver function tests
# acute hepatitis
--Suspect viral etiology vs passed CBD stone.
--Autoimmune hepatitis less likely given no history of other autoimmune diseases or evidence of extrahepatic disease.
--MRI of abdomen suggesting mild gallbladder inflammation suggesting acalculous cholecystitis.
--Lipase trending down; LFTs slightly improved but still elevated
--Mononucleosis screen negative.
--Hepatitis panel, EBV and CMV, ceruloplasmin pending; if unclear probably will need liver biopsy
--F�actin IgG antibody, mitochondrial antibody, SHANNAN pending
--ESR and CRP unremarkable
--PT INR WNL
--CT and ultrasound done in the ED unremarkable.
--Blood acetaminophen level <10
--GI following; low-fat diet for now
--Continue to hold statin and Tylenol
#History of papillary thyroid cancer
--S/p thyroidectomy with neck dissection 2022 with iatrogenic hypothyroidism.
--TSH 0.4
--Continue Synthroid 137 mcg
#Chronic hypoparathyroidism
# Hypocalcemia
--S/p thyroidectomy with resultant hypocalcemia, calcium 7.3.
--On calcitriol BLENDER/BRAZE APPLICATOR, continue.
--Calcium supplementation as needed.
--corrected ca is 7.0 on 07/31/24
#Hyperlipidemia
--Hold statin with acute liver failure.
# Migraine
--No acute flare; not using any medications at this time
DVT PPx: Lovenox
CODE STATUS full code
Data
MRI 07/30/2024:
Subtle findings as described, suggesting mild gallbladder inflammation. In the absence of cholelithiasis on recent ultrasound examination, consider the possibility of acalculous cholecystitis. No bile duct dilatation. No definitive evidence to
suggest pancreatitis.
CT abdomen/pelvis 07/29/2024:
1. No CT abnormalities identified to explain the patient's symptoms.
2. No evidence of intestinal obstruction, bowel inflammatory process, nephrolithiasis, hydronephrosis, cholecystitis, or abscess formation.
Abdominal ultrasound 07/29/2024:
No sonographic evidence for cholelithiasis or bile duct dilatation. Limited by bowel gas artifact.
Anticipated Discharge: Within 24 hours
Subjective/Interval History
-
Date of Service: July 31, 2024
Patient continues to have intermittent epigastric abdominal pain, . Denies fever/nausea/vomiting. No shortness of breath. Denies any diarrhea or constipation.
Objective Data
-
Labs:
Laboratory Results
07/31/24
06:37
WBC Pending
Hgb Pending
Hct Pending
Plt Count Pending
PT Pending
INR Pending
Sodium Pending
Potassium Pending
Chloride Pending
Carbon Dioxide Pending
BUN Pending
Creatinine Pending
Glucose Pending
Calcium Pending
Total Bilirubin Pending
AST Pending
ALT Pending
Alkaline Phosphatase Pending
Vital Signs:
Vital Signs
Temp Pulse Resp BP Pulse Ox
99.3 F 70 16 129/86 98
07/30/24 23:10 07/30/24 23:10 07/30/24 23:10 07/30/24 23:10 07/30/24 23:10
I&O
07/30/24 07/31/24 08/01/24
06:59 06:59 06:59
Intake Total 480 / 480
Balance 480 / 480
Review of Systems
-
History Source: Patient
All other systems: Not reviewed unless documented
Constitutional: Reports No Symptoms; Denies Fever, Fatigue, Night Sweats or Chills
Respiratory: Reports No Symptoms
Cardiac: Reports No Symptoms; Denies Chest Pain or Palpitations
Abdomen/GI: Reports Abdominal Pain; Denies Nausea or Vomiting
Genitourinary: Reports No Symptoms
Musculoskeletal: Reports No Symptoms; Denies Joint Pain
Skin: Reports No Symptoms
Neuro: Reports No Symptoms
Physical Exam
-
General: Well Developed and No Apparent Distress
HEENT: Normocephalic, Atraumatic, Moist Mucous Membranes and Other (Mild scleral icterus)
Respiratory: Clear to Auscultation; Negative Wheezes
Cardiac: Regular Rhythm and S1/S2; Negative Murmur, Rub or Gallop
GI: Soft, Nontender, Nondistended and Normal Bowel Sounds; Negative Organomegaly
Rectal: Deferred by Provider
Musculoskeletal: No Clubbing, No Cyanosis and No Edema
Skin: Warm; Negative Rash
Neuro: Awake, Alert, Oriented, AO x 3 and Nonfocal/Grossly Intact
Psych: Calm
Data Reviewed
-
Labs: Labs Reviewed by me, Discussed with Physician and Discussed with Patient
[2024-07-31 07:26] LABS: Hematocrit 40.1 % (39.0-52.0); Hemoglobin 13.4 g/dL (13.0-18.0); Mean Corp Hgb Conc. 33.4 g/dL (33.0-37.0); Mean Corpuscular Hgb 28.4 pg (27.0-31.0); PT 13.7 Sec (11.4-14.6); Platelet Count 217 10^3/uL (130-400); Red Blood Cell Count 4.72 10^6/uL (4.70-6.10); Red Cell Dist. Width 14.9 % (11.5-14.5); White Blood Cell Count 4.3 10^3/uL (4.8-10.8)
[2024-07-31 07:41] VITALS: BP 134/88
[2024-07-31] MEDS: TUMS EX (EXTRA STRENGTH) CHEWABLE TABLET 600 MG PO (08:42)
[2024-07-31] MEDS: ROCALTROL 0.5 MCG PO (08:42)
[2024-07-31] MEDS: PROTONIX IV 40 MG IV (08:42)
[2024-07-31] MEDS: NSS (PRESERVATIVE FREE) 10 ML IV (08:42)
[2024-07-31 10:19] LABS: Albumin 3.4 g/dl (3.5-5.0); Alkaline Phosphatase 169 U/L (38-126); Blood Urea Nitrogen 7 mg/dl (9-20); Calcium 6.5 mg/dl (8.4-10.2); Carbon Dioxide 22 mmol/L (22-30); Chloride 105 mmol/L (98-107); Direct Bilirubin 5.7 mg/dl (0.0-0.4); Estimated Creatinine Clearance 96 ml/min; Glucose 113 mg/dl (70-99); Potassium 4.1 mmol/L (3.5-5.1); Sodium 136 mmol/L (135-145); Total Bilirubin 6.8 mg/dl (0.2-1.3); Total Protein 6.7 g/dl (6.3-8.2); eGFR > 60.00
[2024-07-31 11:18] LABS: ALT (SGPT) 3056 U/L (0-50); AST (SGOT) 1872 U/L (17-59)
--- NOTE | 2024-07-31 11:56 | CM ---
Patient was admitted under OBS, observation letter explained to patient and spouse at bedside, patient lives with spouse in a 2 story home, patient is independent with adl's and ambulation, no dme, patient drives, home with family when stable no
needs.
PCP: Ivan Tyler.
Pharmacy [facility] in [place]
Plan; Home no needs when stable.
[2024-07-31 14:19] LABS: Vitamin D, 25-OH*** 23.5 ng/mL (30-80)
--- NOTE | 2024-07-31 14:22 | W.PN.UPDATE ---
Update Note
Progress Note Update
Discussed with customer field representative at [facility] Dr. Schilling and presented the case. His viral hepatitis serologies are still pending but high suspicion for possible hepatitis A. He recommended to continue to monitor for now and if there is any change in INR
or worsening liver function test then to reach out again for possible transfer. Will also start NAC for possible DILI
[2024-07-31] MEDS: ACETADOTE 256.3 MG IV (15:22)
--- NOTE | 2024-07-31 15:42 | CON.ID ---
Consultation
-
Date/Time Consultation Requested: 07/30/2024 1628
Date/Time Consultation Performed: 07/31/2024 1450
Requesting Provider: Dr. Olivares
Performing Provider: Dr. Rabago
Reason for Consultation: Hepatitis
Chief Complaint / Past History
History of Present Illness
Katherin Jefferson is a 44-year-old man being evaluated in infectious disease consultation regarding hepatitis. History is obtained from chart review, along with patient interview. Additional history was obtained from the patient's who is at the
bedside.
The patient has a past medical history significant only for thyroid cancer, and presents to [facility] on 07/29, having been sent in by his PCP for markedly elevated liver function tests. The patient reports that he had recently traveled to
[facility] from 05/09/2024 through 06/21/2024. While he was there he stayed with family and attended a wedding. He reports that he began to feel ill around 06/09/2024, with some chills, fever and diarrhea. Upon returning to the [facility] he continued
to feel weak. He reported fevers once back in the [place] in the 99 degree range. Nothing was noted over 100 degrees. He additionally continued chills and ongoing fatigue. He had been taking intermittent Tylenol, and then switched to Motrin. He saw
his PCP approximately 3 to 4 days ago. Labs were drawn, and upon their return he was told to come to the emergency room for further evaluation.
At this point in time he notes some occasional left abdominal discomfort after eating.
No pretravel vaccines received. Was not on any antimalarial's while in [facility]. No history of prior hepatitis A vaccination no. Has not eaten any known hepatotoxic substances (including mushrooms).
Past History
Additional Past Medical History:
Thyroid cancer
Hypercholesterolemia
Additional Past Surgical History:
Thyroid surgery
ACL
Allergy History:
No Known Allergies Allergy (Verified 09/21/23 06:53)
Medications Reviewed: Yes
Current Antibiotics:
none
Social History
Tobacco: Non-Smoker
Alcohol: None
Drug: None
Personal:
Living: With Family
Employment: Employed
Family History
Family History: Not Pertinent
Review of Systems
Vital Signs
Temp Pulse Resp BP Pulse Ox
98.3 F 63 16 134/88 99
07/31/24 07:41 07/31/24 07:41 07/31/24 07:41 07/31/24 07:41 07/31/24 10:40
Physical Exam
Physical Exam
Constitutional: No Acute Distress, Comfortable and Non-toxic
Eyes: Pupils Equal, Pupils Round, No Conjunctival Hemorrhage and Other (Scar icterus noted.)
Oral: No Thrush and No Ulcers
Cardiovascular: Regular Rate and S1/S2; Negative S3/S4
Pulmonary: Clear; Negative Wheezes, Rales or Rhonchi
Gastrointestinal: Soft, Non Tender, Non Distended and Normal Bowel Sounds
Neurological: Awake and Alert
Psychological: Calm
Lab / Diagnostic Study Results
07/31/24 06:37
07/31/24 06:37
Abs Immat Gran (auto) 0.0 10^3/uL (0-0.05) 07/29/24 19:04
Absolute Neuts (auto) 2.7 10^3/uL (1.4-6.5) 07/29/24 19:04
Absolute Lymphs (auto) 1.3 10^3/uL (1.2-3.4) 07/29/24 19:04
Absolute Monos (auto) 0.6 10^3/uL (0.1-0.6) 07/29/24 19:04
Absolute Basos (auto) 0.0 10^3/uL (0-0.2) 07/29/24 19:04
Immature Gran % 0.2 % (0-0.5) 07/29/24 19:04
Neutrophils % 58.5 % (42.2-75.2) 07/29/24 19:04
Lymphocytes % 27.7 % (20.5-51.1) 07/29/24 19:04
Monocytes % 11.9 % (1.7-9.3) H 07/29/24 19:04
Eosinophils % 1.3 % (0-6) 07/29/24 19:04
Basophils % 0.4 % (0-2) 07/29/24 19:04
ESR 10 mm/hour (0-20) 07/30/24 08:11
PT 13.7 Sec (11.4-14.6) 07/31/24 06:37
INR 1.00 07/31/24 06:37
C-Reactive Protein 9.50 mg/L (0.0-10.00) 07/30/24 08:11
Microbiology Results
Micro:
07/31/24 08:41 Blood Parasites Smear - Final
Blood/Venous
07/30/24 20:19 Blood Culture - Pending
Blood/Venous
07/30/24 17:59 Blood Culture - Pending
Blood/Venous
07/30/24 12:02 Influenza Types A & B (LYNNE) - Final
Nasal Swab Negative for Influenza A & B, NAAT
Negative results must be combined with clinical observations
and patient history.
Nucleic Acid Amplification test (NAAT)performed on the
[employer] NOW platform.
07/30/24 08:11 Legionella Urinary Antigen - Final
Urine Negative for Legionella pneumophila Serogroup 1 antigen.
A negative result does not rule out the possiblity of
Legionella infection due to other serogroups or species of
Legionella. Clinical correlation is recommended.
07/29/24 19:04 Influenza Types A & B (LYNNE) - Final
Nasal Swab Negative for Influenza A & B, NAAT
Negative results must be combined with clinical observations
and patient history.
Nucleic Acid Amplification test (NAAT)performed on the
[employer] NOW platform.
Imaging:
07/29/2024 CT abdomen/pelvis with contrast: No CT abnormalities identified to explain marked LFTs. No evidence of intestinal obstruction, bowel inflammatory process, nephrolithiasis, hydronephrosis, cholecystitis or abscess formation. Please see
full dictation for additional detail.
Assessment / Plan
Acute hepatitis
Jaundice
Hyperbilirubinemia
History of thyroid cancer
Recommendations:
Given recent travel, most likely etiology causing acute hepatitis is hepatitis A infection.
Serologies for hepatitis A, hepatitis B, EBV and CMV are pending.
Patient reports that while he was in [place] he received an injection of some medication. Although unlikely, will also check HIV serology.
No need for antibiotics at the present time.
Counseled that should the patient be positive for hepatitis A, she would likely also benefit from vaccination, which we can facilitate.
Await further data
[2024-07-31 16:16] VITALS: BP 138/98
[2024-07-31] MEDS: BENADRYL 50 MG IV (16:25)
[2024-07-31 17:36] LABS: Hepatitis B Surface Antigen Negative (Negative)
--- NOTE | 2024-07-31 17:48 | PTCARENOTE ---
1st bag of 3 ordered Acetylcysteine IV hanging. Pt stating overwhelming itchy feeling. New flat red spots appearing on pt's abdomen, antecubitals, and dorsal feet. Pt denying any sensation in mouth or throat. Acetylcysteine stopped. Dr. Diane
notified. Acetylcysteine d/c'd. New order for Benadryl 50mg IV x1 now acknowledged and administered. Pt stating relief of symptoms.
--- NOTE | 2024-07-31 17:49 | W.PN.GI.CBS2 ---
Today's Communication / Plan
-
trend labs
Assessment / Plan
-
Pt is a 44yo with hx hypercholesterolemia, hypothyroidism on thyroid replacement , papillary thyroid CA with prior thyroidectomy/radiation 2022 with some persistent issues with calcium levels, ACL repair with onset of fatigue, decreased appetite,
bloating, belching abdominal pain, change in skin color and itching. In review with patient he was in [place] in May and again 3 weeks ago. With recent [place] trip noted with onset of symptoms with decreased appetite, fatigue with other family
not feeling well. He did seek care at local clinic and was given Tylenol. He felt slightly improved on return but then continued with symptoms of fatigue, decreased appetite, jaundice, dark urine, rodríguez stools and upper abdominal pain for last 8-9
days. He was seen by PCP 07/28 with abnormal labs (bili 3.1, AST 1056, ALT 1826, alk phos 188, calcium 7.3) and directed to ER. On admission noted with bili 5.9, AST 1779, ALT 3149, alk phos 171, lipase 547, Tylenol level <10, INR 1.02 with
hepatitis pending and mono neg, flu neg, covid neg, legionella pending. No prior hx hepatitis, liver issues in past. No recent mushroom ingestion or other supplement use. On medication change was decreased calcitriol dose and admits to Tylenol
use with 3 dose daily last few days and occasional Motrin use.
07/29/24 US Abdomen Complete/Upper
No sonographic evidence for cholelithiasis or bile duct dilatation. Limited by bowel gas artifact.
07/30/24 CT A/p with IV and oral contrast
1. No CT abnormalities identified to explain the patient's symptoms.
2. No evidence of intestinal obstruction, bowel inflammatory process, nephrolithiasis, hydronephrosis, cholecystitis, or abscess formation.
other outpatient labs 07/28/24 lipase 65, with neg urine cx, normal CBC, CRP 0.74 with normal LFT's 09/2023 but 02/2023 mild elevation bili 0.8, AST 107, ALT 74, alk phos 70 and lipase 65.
-increased LFT's and lipase
-epigastric/ LUQ pain
-fatigue, decreased appetite/bloating
-recent travel to [place] x 2
-recent Tylenol use after onset with level <10 on admission
other med problems:
-hypercholesterolemia
-hypothyroidism
-hx papillary thyroid CA with prior thyroidectomy/radiation 2022 with some persistent calcium level issues follow with endocrine
-ACL repair
PLAN:
etiology of symptoms related to viral etiology most likely Hepatitis A, less likely DILI vs autoimmune process, vs other -- pt denies ETOH or drug use.
Tylenol level is <10, salicylate less than 1
Flu, mono, covid neg , hepatitis panel pending, add EBV, CMV
Ferritin is elevated but most likely from acute phase reactant
MRI with no CBD stone or ductal dilatation, liver normal on MRI
cont to trend labs INR-INR currently normal
Discussed with Dr. Schilling from [facility] hepatology continue to trend labs pending hepatitis serologies if serologies are negative and LFTs are not trending down then proceed with liver biopsy hold for now will DC IR request
Was given NAC today for possible DILI but had an allergic reaction so had to DC and given benadryl
hold Atorvastatin
Subjective
Subjective
Date of Service: July 31, 2024
He had an allergic reaction after NAC was started so it had to be discontinued and was given Benadryl also.
He has some mild right-sided abdominal discomfort
Tolerating diet, fatigue is improving, no diarrhea.
Objective
Data Reviewed
Laboratory Data:
Laboratory Results
07/31/24 06:37
07/31/24 06:37
Laboratory Tests
07/29/24 07/30/24 07/30/24
19:04 08:11 20:19
Iron 155
TIBC 315
% Saturation 49
Ferritin 1950.0 H
Salicylates < 1.0 L
Acetaminophen < 10 L
Laboratory Results
PT 13.7 Sec (11.4-14.6) 07/31/24 06:37
INR 1.00 07/31/24 06:37
APTT 31.6 Sec (23.4-35.0) 07/29/24 21:15
Total Bilirubin 6.8 mg/dl (0.2-1.3) H 07/31/24 06:37
AST 1872 U/L (17-59) H* 07/31/24 06:37
ALT 3056 U/L (0-50) H* 07/31/24 06:37
Alkaline Phosphatase 169 U/L (38-126) H 07/31/24 06:37
Lipase 405 U/L (23-300) H 07/30/24 08:11
Vital Signs and I&O:
Vital Signs
Temp Pulse Resp BP Pulse Ox
98.6 F 68 18 138/98 99
07/31/24 16:16 07/31/24 16:16 07/31/24 16:16 07/31/24 16:16 07/31/24 16:16
I&O
07/30/24 07/31/24 08/01/24
06:59 06:59 06:59
Intake Total 480 / 480 480 / 480
Balance 480 / 480 480 / 480
07/30/24 MRI
IMPRESSION:
Subtle findings as described, suggesting mild gallbladder inflammation. In the absence of cholelithiasis on recent ultrasound examination, consider the possibility of acalculous cholecystitis. No bile duct dilatation. No definitive evidence to
suggest pancreatitis.
Physical Exam
Physical Exam
HEENT: Other (icteric)
Cardiology: Normal Sinus Rhythm
Pulmonary: Clear
GI: Soft, Non Distended, Non Tender and Normal Bowel Sounds
[2024-07-31 17:53] LABS: Hepatitis A Antibody, Total Positive (Negative); Hepatitis B Core Ab, Total Negative (Negative); Hepatitis B Surface Antibody Negative; Hepatitis C Antibody Negative (Negative)
[2024-07-31] MEDS: LOVENOX 40 MG SC (18:09)
[2024-07-31 19:53] LABS: Hepatitis A IgM Antibody Reactive (Negative); Hepatitis B Core Ab, IgM Negative (Negative)
[2024-07-31 23:03] VITALS: BP 123/74
[2024-08-01] MEDS: SYNTHROID 137 MCG PO (06:16)
[2024-08-01 07:19] VITALS: BP 130/86
--- NOTE | 2024-08-01 07:28 | W.PN.HOSP.TC ---
Addendum entered and electronically signed by Rocio Patel MD 08/01/24 14:04:
I saw and evaluated the patient. I reviewed the resident�s note and agree with findings and plan as documented in the resident�s note
Patient is feeling better entrance to go home anxious to go home. No symptoms patient is awake alert oriented
Denies any abdominal pain or any symptoms
Hepatitis A IgM came back positive acute hepatitis A likely reason for his elevated LFTs
Rest of the testing including autoimmune serologies, hepatitis C antibody pending but likely reason is acute hep A
Discussed with patient and regarding hepatitis A and also encouraged to get vaccinated and also other family members as well.
He was given a prescription for repeat LFTs in 3 to 4 days and also a 1 week following that. Patient should follow-up with GI for the rest of the workup pending
Discussed with GI As well as infectious disease
All discharge follow-up including avoiding Tylenol and alcohol discussed with the patient
More than 30 minutes spent in discharge including
Final examination of the patient
Summarizing hospital stay
Instructions for continuing care to all relevant caregivers
Preparation of discharge records, prescriptions, and referral forms
Total time spent (in minutes): 37 min
Original Note:
Today's Communication/Plan
-
Discharge home today with instructions to repeat LFTs in 3 days in 1 week; follow-up with outpatient GI in 1 to 2 weeks
Assessment / Plan
Assessment / Plan
44-year-old male with PMH of papillary thyroid cancer s/p thyroidectomy and chemotherapy who presented to ED on 07/30/2024 with 8 to 9 days history of fever, chills, myalgia and malaise. He also reports poor oral intake with decreased appetite.
He recently saw his PCP and was sent to the hospital because of elevated LFTs. Denies history of liver disease, or alcohol use disorder, high risk sexual contacts. He had a recent travel history to [place] in June 2024 when he developed similar
fever, chills and myalgia.
Assessment/plan:
# Abnormal liver function tests
# acute hepatitis
--Autoimmune hepatitis less likely given no history of other autoimmune diseases or evidence of extrahepatic disease.
--MRI of abdomen suggesting mild gallbladder inflammation suggesting acalculous cholecystitis.
--Lipase trending down; LFTs improved but still elevated
--Mononucleosis screen negative.
--Hepatitis panel + for hepatitis A
--EBV and CMV, ceruloplasmin, HIV pending
--F�actin IgG antibody, mitochondrial antibody, SHANNAN pending
--ESR and CRP unremarkable
--PT INR WNL
--Blood parasite smear negative for malaria and Babesia
--Was given NAC 07/31 for possible DILI but had an allergic reaction so had to DC and given benadryl; reaction resolved
--CT and ultrasound done in the ED unremarkable.
--Blood acetaminophen level <10
--Continue to hold statin and Tylenol
-- Discharge home today with instructions to repeat LFTs in 3 days in 1 week; follow-up with outpatient GI in 1 to 2 weeks
#History of papillary thyroid cancer
--S/p thyroidectomy with neck dissection 2022 with iatrogenic hypothyroidism.
--TSH 0.4
--Continue Synthroid 137 mcg
#Chronic hypoparathyroidism
# Hypocalcemia
--S/p thyroidectomy with resultant hypocalcemia, calcium 7.3.
--On calcitriol DROP MACHINE OPERATOR, continue.
--Calcium supplementation as needed.
--corrected ca is 7.0 on 07/31/24
# Hypovitaminosis D
--replaced with oral vitamin D
#Hyperlipidemia
--Hold statin with acute liver failure.
# Migraine
--No acute flare; not using any medications at this time
DVT PPx: Lovenox
CODE STATUS full code
Data
MRI 07/30/2024:
Subtle findings as described, suggesting mild gallbladder inflammation. In the absence of cholelithiasis on recent ultrasound examination, consider the possibility of acalculous cholecystitis. No bile duct dilatation. No definitive evidence to
suggest pancreatitis.
CT abdomen/pelvis 07/29/2024:
1. No CT abnormalities identified to explain the patient's symptoms.
2. No evidence of intestinal obstruction, bowel inflammatory process, nephrolithiasis, hydronephrosis, cholecystitis, or abscess formation.
Abdominal ultrasound 07/29/2024:
No sonographic evidence for cholelithiasis or bile duct dilatation. Limited by bowel gas artifact.
Anticipated Discharge: Today
Subjective/Interval History
-
Date of Service: August 01, 2024
AF VSS. States that he is feeling better overall.
Objective Data
-
Labs:
Laboratory Results
08/01/24
06:00
WBC Pending
Hgb Pending
Hct Pending
Plt Count Pending
Sodium Pending
Potassium Pending
Chloride Pending
Carbon Dioxide Pending
BUN Pending
Creatinine Pending
Glucose Pending
Calcium Pending
Total Bilirubin Pending
AST Pending
ALT Pending
Alkaline Phosphatase Pending
Vital Signs:
Vital Signs
Temp Pulse Resp BP Pulse Ox
98.2 F 65 16 130/86 97
08/01/24 07:19 08/01/24 07:19 08/01/24 07:19 08/01/24 07:19 08/01/24 07:19
I&O
07/31/24 08/01/24 08/02/24
06:59 06:59 06:59
Intake Total 480 / 480 480 / 480
Balance 480 / 480 480 / 480
Review of Systems
-
History Source: Patient
All other systems: Not reviewed unless documented
Constitutional: Reports No Symptoms; Denies Fever, Fatigue, Night Sweats or Chills
Respiratory: Reports No Symptoms
Cardiac: Reports No Symptoms; Denies Chest Pain or Palpitations
Abdomen/GI: Reports Abdominal Pain (Improved); Denies Nausea or Vomiting
Genitourinary: Reports No Symptoms
Musculoskeletal: Reports No Symptoms; Denies Joint Pain
Skin: Reports No Symptoms
Neuro: Reports No Symptoms
Physical Exam
-
General: Well Developed and No Apparent Distress
HEENT: Normocephalic, Atraumatic, Moist Mucous Membranes and Other (Mild scleral icterus)
Respiratory: Clear to Auscultation; Negative Wheezes
Cardiac: Regular Rhythm and S1/S2; Negative Murmur, Rub or Gallop
GI: Soft, Nontender, Nondistended and Normal Bowel Sounds; Negative Organomegaly
Musculoskeletal: No Clubbing, No Cyanosis and No Edema
Skin: Warm; Negative Rash
Neuro: Awake, Alert, Oriented, AO x 3 and Nonfocal/Grossly Intact
Psych: Calm
Data Reviewed
-
Labs: Labs Reviewed by me, Discussed with Physician and Discussed with Patient
[2024-08-01] MEDS: PROTONIX IV 40 MG IV (08:16)
[2024-08-01] MEDS: VITAMIN D3 (cholecalciferol) 50 MCG PO (08:16)
[2024-08-01] MEDS: NSS (PRESERVATIVE FREE) 10 ML IV (08:16)
[2024-08-01] MEDS: ROCALTROL 0.5 MCG PO (08:17)
[2024-08-01] MEDS: TUMS EX (EXTRA STRENGTH) CHEWABLE TABLET 600 MG PO (08:17)
[2024-08-01 08:55] LABS: Hematocrit 43.9 % (39.0-52.0); Hemoglobin 14.8 g/dL (13.0-18.0); Mean Corp Hgb Conc. 33.7 g/dL (33.0-37.0); Mean Corpuscular Hgb 28.5 pg (27.0-31.0); Mean Corpuscular Volume 84.4 fL (80.0-94.0); Mean Platelet Volume 9.1 fL (7.4-10.4); Platelet Count 264 10^3/uL (130-400); Red Cell Dist. Width 15.3 % (11.5-14.5); White Blood Cell Count 5.2 10^3/uL (4.8-10.8)
[2024-08-01 08:57] LABS: Albumin 4.6 g/dl (3.5-5.0); Alkaline Phosphatase 183 U/L (38-126); Blood Urea Nitrogen 8 mg/dl (9-20); Calcium 7.1 mg/dl (8.4-10.2); Carbon Dioxide 25 mmol/L (22-30); Chloride 98 mmol/L (98-107); Estimated Creatinine Clearance 96 ml/min; Glucose 95 mg/dl (70-99); Potassium 4.4 mmol/L (3.5-5.1); Sodium 136 mmol/L (135-145); Total Bilirubin 8.2 mg/dl (0.2-1.3); Total Protein 8.5 g/dl (6.3-8.2); eGFR > 60.00
--- NOTE | 2024-08-01 09:18 | W.PN.ID1 ---
Date of Service
Date of Service: August 01, 2024
Today's Communication
Continue with supportive care at this time. Trend LFTs.
Assessment / Plan
Acute hepatitis A infection
Jaundice
Hyperbilirubinemia
History of thyroid cancer
Recommendations:
Serology reveals positive hepatitis A IgM, thus confirming the diagnosis of hepatitis A infection.
Serologies for hepatitis B, EBV and CMV are pending.
Patient reports that while he was in [place] he received an injection of some medication. Although unlikely, checking HIV serology.
No need for antibiotics at the present time.
Counseled that she would benefit from vaccination. I have given her my office information, and advised her to go to the office for vaccination.
Care for hepatitis A is supportive.
Chief Complaint
-: Other (Hepatitis)
Subjective / Review of Systems
Review of Systems: No Fever and No Chills
Vital Signs / Physical Exam
Vital Signs
Vital Signs
Temp Pulse Resp BP Pulse Ox
98.2 F 65 16 130/86 97
08/01/24 07:19 08/01/24 07:19 08/01/24 07:19 08/01/24 07:19 08/01/24 07:19
Physical Exam
Constitutional: No Acute Distress, Comfortable and Non-toxic
Eyes: Other (Scleral icterus)
Cardiovascular: S1/S2; Negative S3/S4
Pulmonary: Non Labored
Skin: Jaundice
Neurological: Awake and Alert
Psychological: Calm
Objective Data
Lab Data
Lab Results
08/01/24 07:46
08/01/24 07:46
ESR 10 mm/hour (0-20) 07/30/24 08:11
PT 13.7 Sec (11.4-14.6) 07/31/24 06:37
INR 1.00 07/31/24 06:37
APTT 31.6 Sec (23.4-35.0) 07/29/24 21:15
Estimated Creat Clear 96 ml/min 08/01/24 07:46
Total Bilirubin 8.2 mg/dl (0.2-1.3) H 08/01/24 07:46
AST 1872 U/L (17-59) H* 07/31/24 06:37
ALT 3056 U/L (0-50) H* 07/31/24 06:37
Alkaline Phosphatase 183 U/L (38-126) H 08/01/24 07:46
C-Reactive Protein 9.50 mg/L (0.0-10.00) 07/30/24 08:11
Most recent labs reviewed.
Micro Results:
07/30/24 20:19 Blood Culture - Preliminary
Blood/Venous No Growth in 24 hours- Final report to follow
07/30/24 17:59 Blood Culture - Preliminary
Blood/Venous No Growth in 24 hours- Final report to follow
07/31/24 08:41 Blood Parasites Smear - Final
Blood/Venous
07/30/24 12:02 Influenza Types A & B (LYNNE) - Final
Nasal Swab Negative for Influenza A & B, NAAT
Negative results must be combined with clinical observations
and patient history.
Nucleic Acid Amplification test (NAAT)performed on the
[employer] NOW platform.
07/30/24 08:11 Legionella Urinary Antigen - Final
Urine Negative for Legionella pneumophila Serogroup 1 antigen.
A negative result does not rule out the possiblity of
Legionella infection due to other serogroups or species of
Legionella. Clinical correlation is recommended.
07/29/24 19:04 Influenza Types A & B (LYNNE) - Final
Nasal Swab Negative for Influenza A & B, NAAT
Negative results must be combined with clinical observations
and patient history.
Nucleic Acid Amplification test (NAAT)performed on the
[employer] NOW platform.
Laboratory Tests
07/29/24
22:22
Hepatitis A IgM Ab Reactive
Hepatitis A Ab Total Positive
Imaging:
07/29/2024 CT abdomen/pelvis with contrast: No CT abnormalities identified to explain marked LFTs. No evidence of intestinal obstruction, bowel inflammatory process, nephrolithiasis, hydronephrosis, cholecystitis or abscess formation. Please see
full dictation for additional detail.
Care Review
Plan reviewed with: Physician (Hospitalist; GI)
[2024-08-01 10:30] LABS: ALT (SGPT) 3143 U/L (0-50)
[2024-08-01 10:45] LABS: AST (SGOT) 1509 U/L (17-59)
--- NOTE | 2024-08-01 12:13 | CM ---
Addendum entered by Char Jalloh 08/01/24 12:13:
Patient switched to inpatient, patient made aware.
Original Note:
Home no needs.
Plan; Home no needs.
[2024-08-01 12:40] VITALS: BP 140/86
[2024-08-01 12:55] LABS: HIV Combo Negative (Negative)
--- NOTE | 2024-08-01 13:32 | W.DCSUMMARY ---
Addendum entered and electronically signed by Josephine Patel MD 08/02/24 16:30:
Read, reviewed, and agree. See same day progress note for additional details. Time spent coordinating care, DC planning, review of DC plan of care with resident, transition of care, review of records in EMR, med rec, consults, notes, d/w
consultants, nursing, family, and CM
Original Note:
Documented by User: Danilo Griffin MD, Resident 08/01/24 13:52
Discharge Summary
Discharge Data
Date of Admission: 07/29/24
Date of Discharge: 08/01/24
-
Pending Results: Yes (EBV and CMV, ceruloplasmin)
Additional Pending Results:
F�actin IgG antibody, mitochondrial antibody, SHANNAN pending
Hospital Course
Discharging Physician : Danilo Griffin MD ; josephine Patel MD
Disposition : Home
Primary care physician : William Tyler
Principal Discharge diagnosis : Acute hepatitis A infection
Chronic Discharge diagnosis : Abdominal pain, elevated LFTs, acute hepatitis A infection, jaundice, hyperbilirubinemia, chronic hypoparathyroidism due to thyroidectomy, hyperlipidemia, history of papillary thyroid cancer, hypovitaminosis D, history
of migraines
Hospital Course : 44y M with PMH significant for thyroid cancer s/p thyroidectomy and XRT who presented to ED complaining of fevers, chills, myalgias and malaise. Patient reported that his symptoms started about 8-9 days prior to coming. He
reported shaking chills, fevers, muscle aches and fatigue. He has had poor appetite / decreased PO intake. No N/V. No diarrhea. Stool has been pale colored and urine has been bright yellow. Patient notes that he was taking Tylenol for symptom
control - two tabs 3 times daily at the most. Patient was seen by his PCP recently and had outpatient labs done. He was called on day of arrival and advised of abnormal LFTs and told to go to ED for evaluation.
Patient denied any history of liver disease.
Patient traveled to [facility] in June 2024. He returned home on 06/21/24.
While in [place] he developed similar fevers / chills and myalgias. He reported that multiple contacts were ill with similar symptoms at that time.
Patient denied any high-risk sexual activity / encounters.
He was seen by a physician in [place] and received an injection of paracetamol with improvement in his symptoms. He then felt well until recently,
He was kept in observation overnight. He was provided with supportive care that included IV fluids. CT and ultrasound abdomen performed results below. His statin was placed on hold given upon discharge with instructions to follow-up with GI
before restarting. Acetaminophen level was checked which came back less than 10. In addition to routine blood work which showed AST 1779, ALT 3149, T.bili 5.9, lipase 547 additional hepatitis profile, EBV and CMv was ordered. His other medication
including Calcitrol and Synthroid were continued. GI was consulted. And plan was made to consider a liver biopsy if LFTs continue to remain high and hepatitis panel come back unremarkable. Peripheral smear for malaria and Babesia came back
negative.
During his stay at the hospital GI discussed the case with computer operations supervisor at [facility] Dr. Schilling as well. And after discussion he was started on NAC for possible DILI, however it was discontinued due to allergic reaction.
His hepatitis panel came back positive for hepatitis A. It was discussed in length regarding care options which is mostly supportive in his case. Vaccination was offered to his as well during his hospital stay. After clearance from the
infectious disease and GI he was discharged home with instruction to repeat LFTs in 3 days and again in 1 week and follow-up with PCP and GI in 1 to 2 weeks. Blood work also showed low vitamin D and he was started on daily vitamin D3 tablets and a
prescription was sent upon discharge. At the time of discharge his LFTs continue to trend down and he was subjectively feeling better.
Important imaging findings : US Abdomen Complete: No sonographic evidence for cholelithiasis or bile duct dilatation. Limited by bowel gas artifact
CT Abd/pel W Iv And Oral Contr: 1. No CT abnormalities identified to explain the patient's symptoms.
2. No evidence of intestinal obstruction, bowel inflammatory process, nephrolithiasis, hydronephrosis, cholecystitis, or abscess formation.
MR Abdomen W/o & W Contrast: Subtle findings as described, suggesting mild gallbladder inflammation. In the absence of cholelithiasis on recent ultrasound examination, consider the possibility of acalculous cholecystitis. No bile duct dilatation. No
definitive evidence to suggest pancreatitis.
Discharge Plan
-
Patient Disposition: Home (Routine Discharge)
Discharge Diagnosis/Procedures: Abdominal pain, elevated LFTs, acute hepatitis A infection, jaundice, hyperbilirubinemia
Condition: Good
Diet: No restrictions and As tolerated
Activity: No restrictions
Driving Restrictions: As prior to admission
Bathing Restrictions: None
Blood Work: LFTs in 3 days and 1 week; prescription provided to the patient.
Several liver tests are pending at discharge. Please call GI office for results. Avoid Tylenol products.
Referrals:
William Tyler CRNP [Family Provider] - in less than 1 week
Lisandra Diane MD [Active] - in one to two weeks
Additional Discharge Medication Instructions: Take vitamin D3 1 tablet by mouth daily
Complete LFTs in 3 days and repeat in 1 week
Follow-up with PCP in a week
Follow-up with GI in 1 to 2 weeks
Prescriptions:
New
cholecalciferol (vitamin D3) 50 mcg (2,000 unit) Tablet
50 mcg PO DAILY Qty: 30 0RF
Continued
levothyroxine [Synthroid] 137 mcg Tablet
137 mcg PO DAILY
calcium carbonate [Calcium 600] 600 mg calcium (1,500 mg) Tablet
600 mg PO DAILY
calcitriol
1 cap PO DAILY
Held
atorvastatin 10 mg Tablet
10 mg PO HS
Hold Instructions: Resume on 08/13/24. Hold until followed up with GI/LFT return to baseline.
Discharge Orders:
Discharge Patient (As Directed); Ordered 08/01/24
Ordered By: Danilo Griffin
Discharge Date and Time
Discharge Date/Time: 08/01/24 12:42
Print Language: UZBEK

Documented by User: Josephine Patel MD 08/02/24 16:24
Discharge Summary
Discharge Data
Date of Admission: 07/31/24
Date of Discharge: 08/02/24
Discharge Plan
-
Patient Disposition: Home (Routine Discharge)
Discharge Diagnosis/Procedures: Abdominal pain, elevated LFTs, acute hepatitis A infection, jaundice, hyperbilirubinemia
Condition: Good
Diet: No restrictions and As tolerated
Activity: No restrictions
Driving Restrictions: As prior to admission
Bathing Restrictions: None
Blood Work: LFTs in 3 days and 1 week; prescription provided to the patient.
Several liver tests are pending at discharge. Please call GI office for results. Avoid Tylenol products.
Referrals:
William Tyler CRNP [Family Provider] - in less than 1 week
Lisandra Diane MD [Active] - in one to two weeks
Additional Discharge Medication Instructions: Take vitamin D3 1 tablet by mouth daily
Complete LFTs in 3 days and repeat in 1 week
Follow-up with PCP in a week
Follow-up with GI in 1 to 2 weeks
Prescriptions:
New
cholecalciferol (vitamin D3) 50 mcg (2,000 unit) Tablet
50 mcg PO DAILY Qty: 30 0RF
Continued
levothyroxine [Synthroid] 137 mcg Tablet
137 mcg PO DAILY
calcium carbonate [Calcium 600] 600 mg calcium (1,500 mg) Tablet
600 mg PO DAILY
calcitriol
1 cap PO DAILY
Held
atorvastatin 10 mg Tablet
10 mg PO HS
Hold Instructions: Resume on 08/13/24. Hold until followed up with GI/LFT return to baseline.
Discharge Orders:
Discharge Patient (As Directed); Ordered 08/01/24
Ordered By: Danilo Griffin
Discharge Date and Time
Discharge Date/Time: 08/01/24 12:42
Print Language: UZBEK
--- NOTE | 2024-08-01 14:19 | W.PN.UPDATE ---
Update Note
Progress Note Update
Follow up appt with GI arranged with GI (BARRY Pearson) on 09/03/24 at 11:30. Office is calling patient to update him.
[2024-08-01 14:22] LABS: CMV IgG Antibody <0.20 U/mL (<=0.70)
[2024-08-01 14:25] LABS: CMV IgM Antibody 12.3 AU/mL (<=29.9)
--- NOTE | 2024-08-01 14:52 | W.PN.GI.CBS2 ---
Today's Communication / Plan
-
GI follow-up as outpatient
Assessment / Plan
-
Pt is a 44yo with hx hypercholesterolemia, hypothyroidism on thyroid replacement , papillary thyroid CA with prior thyroidectomy/radiation 2022 with some persistent issues with calcium levels, ACL repair with onset of fatigue, decreased appetite,
bloating, belching abdominal pain, change in skin color and itching. In review with patient he was in [place] in May and again 3 weeks ago. With recent [place] trip noted with onset of symptoms with decreased appetite, fatigue with other family
not feeling well. He did seek care at local clinic and was given Tylenol. He felt slightly improved on return but then continued with symptoms of fatigue, decreased appetite, jaundice, dark urine, rodríguez stools and upper abdominal pain for last 8-9
days. He was seen by PCP 07/28 with abnormal labs (bili 3.1, AST 1056, ALT 1826, alk phos 188, calcium 7.3) and directed to ER. On admission noted with bili 5.9, AST 1779, ALT 3149, alk phos 171, lipase 547, Tylenol level <10, INR 1.02 with
hepatitis pending and mono neg, flu neg, covid neg, legionella pending. No prior hx hepatitis, liver issues in past. No recent mushroom ingestion or other supplement use. On medication change was decreased calcitriol dose and admits to Tylenol
use with 3 dose daily last few days and occasional Motrin use.
07/29/24 US Abdomen Complete/Upper
No sonographic evidence for cholelithiasis or bile duct dilatation. Limited by bowel gas artifact.
07/30/24 CT A/p with IV and oral contrast
1. No CT abnormalities identified to explain the patient's symptoms.
2. No evidence of intestinal obstruction, bowel inflammatory process, nephrolithiasis, hydronephrosis, cholecystitis, or abscess formation.
other outpatient labs 07/28/24 lipase 65, with neg urine cx, normal CBC, CRP 0.74 with normal LFT's 09/2023 but 02/2023 mild elevation bili 0.8, AST 107, ALT 74, alk phos 70 and lipase 65.
-increased LFT's -secondary to acute hep A infection
-epigastric/ LUQ pain
-fatigue, decreased appetite/bloating
-recent travel to [place] x 2
-recent Tylenol use after onset with level <10 on admission
other med problems:
-hypercholesterolemia
-hypothyroidism
-hx papillary thyroid CA with prior thyroidectomy/radiation 2022 with some persistent calcium level issues follow with endocrine
-ACL repair
PLAN:
Hep A IgM positive-consistent with acute hep A infection
other work up : Tylenol level is <10, salicylate less than 1
Flu, mono, covid neg , hepatitis B/C negative , EBV, CMV, autoimmune markers- pending
Ferritin is elevated but most likely from acute phase reactant
MRI with no CBD stone or ductal dilatation, liver normal on MRI
Continue supportive care at this time
Discussed about mode of transmission/precautions with hep A infection. ID/ medical team discussed about vaccination of /family members. advised to avoid hepatotoxic substances/alcohol
Repeat liver test next week.
Okay to discharge from GI standpoint. Follow-up with GI as outpatient
Total Time Spent with Patient (in minutes): 35
Subjective
Subjective
Date of Service: August 01, 2024
Denies any abdominal pain/nausea/vomiting.
Objective
Data Reviewed
Laboratory Data:
Laboratory Results
08/01/24 07:46
08/01/24 07:46
Laboratory Results
PT 13.7 Sec (11.4-14.6) 07/31/24 06:37
INR 1.00 07/31/24 06:37
APTT 31.6 Sec (23.4-35.0) 07/29/24 21:15
Total Bilirubin 8.2 mg/dl (0.2-1.3) H 08/01/24 07:46
AST 1509 U/L (17-59) H* 08/01/24 07:46
ALT 3143 U/L (0-50) H* 08/01/24 07:46
Alkaline Phosphatase 183 U/L (38-126) H 08/01/24 07:46
Lipase 405 U/L (23-300) H 07/30/24 08:11
Vital Signs and I&O:
Vital Signs
Temp Pulse Resp BP Pulse Ox
97.5 F 74 16 140/86 99
08/01/24 12:40 08/01/24 12:40 08/01/24 12:40 08/01/24 12:40 08/01/24 12:40
I&O
07/31/24 08/01/24 08/02/24
06:59 06:59 06:59
Intake Total 480 / 480 480 / 480
Balance 480 / 480 480 / 480
Physical Exam
Physical Exam
HEENT: Other (Icterus)
GI: Soft, Non Distended and Non Tender
[2024-08-01 15:18] LABS: EBV-EA (D) Ab IgG <5.0 U/mL (0.0-10.9); EBV-VCA IgG Antibodies 88.1 U/mL (0.0-21.9); EBV-VCA IgM Antibodies 39.4 U/mL (0.0-43.9)
[2024-08-01 23:27] LABS: Ceruloplasmin 24 mg/dL (15-30)
[2024-08-01 23:54] LABS: Mitochondrial M2 Ab, IgG 3.5 Units (0.0-24.9)
[2024-08-02 03:30] LABS: ANA, IgG Reflex to HEp-2 None Detected (None Detected)
[2024-08-02 11:23] LABS: F-Actin Antibody IgG 15 Units (0-19)
== END 2024-08-01 12:42 | disposition home or self-care (01) | DRG 443 ==
LOC: 1 ACUTE 11:50
PROVIDERS: Nurse Practitioner Adult Health; Physician Assistant; ADMITTING PHYSICIAN Hospitalist; ATTENDING PHYSICIAN Hospitalist; EMERGENCY PHYSICIAN Emergency Medicine; FAMILY PHYSICIAN Nurse Practitioner Family; OTHER PHYSICIAN Internal Medicine Gastroenterology; OTHER PHYSICIAN Internal Medicine Infectious Disease
DX: B15.9 Hepatitis A without hepatic coma (principal); I10 Essential (primary) hypertension; E78.00 Pure hypercholesterolemia, unspecified; E55.9 Vitamin D deficiency, unspecified; E89.0 Postprocedural hypothyroidism; E89.2 Postprocedural hypoparathyroidism; G43.909 Migraine, unspecified, not intractable, without status migrainosus; Z79.899 Other long term (current) drug therapy; Z79.890 Hormone replacement therapy; Z85.850 Personal history of malignant neoplasm of thyroid; Z92.3 Personal history of irradiation; Z11.52 Encounter for screening for COVID-19
CPT/HCPCS: 74177; 74183; 76700; 80053; 80143; 80179; 82248; 82306; 82390; 82550; 82728; 83540; 83550; 83690; 84443; 85025; 85027; 85610; 85652; 85730; 86015; 86038; 86140; 86308; 86381; 86644; 86645; 86663; 86664; 86665; 86704; 86705; 86706; 86708; 86709; 86803; 87015; 87040; 87207; 87340; 87389; 87449; 87502; 87811; A9575; J0132; Q9967

== ENCOUNTER → 2024-08-14 09:24 | Outpatient (REF) | payer BC, SELFPAY ==
[2024-08-14 11:56] LABS: Albumin 4.5 g/dl (3.5-5.0); Alkaline Phosphatase 142 U/L (38-126); Blood Urea Nitrogen 10 mg/dl (9-20); Calcium 8.2 mg/dl (8.4-10.2); Carbon Dioxide 29 mmol/L (22-30); Chloride 101 mmol/L (98-107); Glucose 106 mg/dl (70-99); Sodium 139 mmol/L (135-145); Total Protein 8.2 g/dl (6.3-8.2); eGFR > 60.00
[2024-08-14 12:19] LABS: ALT (SGPT) 1790 U/L (0-50); AST (SGOT) 846 U/L (17-59)
== END ==
LOC: HWLAB 09:24
PROVIDERS: ATTENDING PHYSICIAN Nurse Practitioner Family
DX: B15.9 Hepatitis A without hepatic coma (principal)
CPT/HCPCS: 36415; 80053

== ENCOUNTER → 2025-03-02 09:06 | Outpatient (REF) | payer BC, SELFPAY | LOC: HWRAD 09:06 | PROVIDERS: ATTENDING PHYSICIAN Internal Medicine Endocrinology, Diabetes & Metabolism; FAMILY PHYSICIAN Nurse Practitioner Family | DX: C73 Malignant neoplasm of thyroid gland (principal) | CPT/HCPCS: 76536 ==

== ENCOUNTER 2025-03-24 06:18 | Day surgery (SDC) | payer BC, SELFPAY ==
[2025-03-24] VITALS (12 sets, daily range): BP systolic 139–167; BP diastolic 99–113; BMI 25.1
[2025-03-24] MEDS: CELEBREX 200 MG PO (10:46)
[2025-03-24] MEDS: TYLENOL 1000 MG PO (10:46)
[2025-03-24] MEDS: NORMOSOL-R/PLASMALYTE-A 1000 IV (10:48)
[2025-03-24] MEDS: EMEND 40 MG PO (11:57)
[2025-03-24] MEDS: SUBLIMAZE 25 MCG IV (14:10)
== END 2025-03-24 15:50 | disposition home or self-care (01) ==
LOC: SDS 06:18
PROVIDERS: ATTENDING PHYSICIAN Specialist
DX: S83.512A Sprain of anterior cruciate ligament of left knee, initial encounter (principal); X58.XXXA Exposure to other specified factors, initial encounter
CPT/HCPCS: 29888; C1713

== ENCOUNTER → 2025-05-18 16:10 | Outpatient (REF) | payer BC, SELFPAY | LOC: RAD 16:10 | DX: L02.01 Cutaneous abscess of face (principal) | CPT/HCPCS: 70487; Q9967 ==